=== PATIENT | female | born 2000 | race Caucasian/White ===

== ENCOUNTER 2023-12-18 08:40 | Inpatient (IN) | payer OTHER, SELFPAY ==
[2023-12-16 19:40] VITALS: BP 124/88
[2023-12-16 20:17] VITALS: BMI 18.6
[2023-12-16 21:10] LABS: % Basophils 0.6 % (0-2); % Eosinophils 0.2 % (0-6); % Immature Granulocytes 0.2 % (0-0.5); % Lymphocytes 22.2 % (20.5-51.1); % Neutrophils 71.8 % (42.2-75.2); Absolute Basophils 0.1 10^3/uL (0-0.2); Absolute Lymphocytes 1.9 10^3/uL (1.2-3.4); Absolute Monocytes 0.4 10^3/uL (0.1-0.6); Absolute Neutrophils 6.1 10^3/uL (1.4-6.5); Hematocrit 34.4 % (37.0-47.0); Hemoglobin 11.7 g/dL (12.0-16.0); Mean Corpuscular Hgb 27.9 pg (27.0-31.0); Mean Corpuscular Volume 81.9 fL (81.0-99.0); Mean Platelet Volume 9.5 fL (7.4-10.4); Nucleated Red Blood Cells % 0 %; Platelet Count 193 10^3/uL (130-400); Red Cell Dist. Width 13.6 % (11.5-14.5); White Blood Cell Count 8.5 10^3/uL (4.8-10.8)
[2023-12-16 21:27] LABS: HCG, Serum Qualitative Screen Negative
[2023-12-16 21:31] LABS: ALT (SGPT) 17 U/L (0-35); AST (SGOT) 26 U/L (14-36); Albumin 4.5 g/dl (3.5-5.0); Alkaline Phosphatase 57 U/L (38-126); Blood Urea Nitrogen 6 mg/dl (7-17); Calcium 9.8 mg/dl (8.4-10.2); Carbon Dioxide 24 mmol/L (22-30); Chloride 104 mmol/L (98-107); Estimated Creatinine Clearance > 125 ml/min; Glucose 84 mg/dl (70-99); Magnesium 1.9 mg/dl (1.6-2.3); Phosphorus 3.9 mg/dl (2.5-4.5); Potassium 4.3 mmol/L (3.5-5.1); Sodium 133 mmol/L (135-145); Total Bilirubin 0.4 mg/dl (0.2-1.3); Total Protein 7.1 g/dl (6.3-8.2); eGFR > 60.00
[2023-12-16 22:06] LABS: Urine Albumin Negative (Neg - Trace); Urine Bilirubin Negative (Negative); Urine Character Clear (Clear); Urine Color Straw; Urine Glucose Negative (Negative); Urine Ketone Negative (Negative); Urine Leukocyte Trace (Negative); Urine Nitrite Negative (Negative); Urine Occult Blood Negative (Negative); Urine Specific Gravity 1.005 (<1.030); Urine Urobilinogen Negative (Neg - 1+)
[2023-12-16 22:14] LABS: Urine Red Blood Cell 0-2 /HPF (0-2)
[2023-12-16 22:15] LABS: Urine Bacteria Few (Negative)
--- NOTE | 2023-12-16 22:23 | ED.GENMED ---
History of Present Illness
General
Chief Complaint: Weight Changes
Source: patient and family (Mother)
Exam Limitations: none
Time Seen by Provider: 12/16/23 20:35
Nursing documentation reviewed up to this point in time: agreed with
Travel History
Have you had any contact with someone who has COVID-19?: No
Do you have any symptoms of coronavirus? Fever > 100 degrees, chills, cough, shortness of breath, sore throat, loss of taste or smell, muscle aches, or headache?: No
History of Present Illness
History of Present Illness:
23-year-old female with a past medical history of anxiety and depression who presents to the emergency room with her mother for evaluation of weight loss. Patient reports that she has had chronic issues with anorexia/poor appetite over the past 3
years. Symptoms have been acutely worse over the past few months particularly since with July. Over that period of time she has lost 20 to 30 pounds unintentionally. She says that she has chronic nausea and that any significant food intake
beyond small bites causes her to vomit and gag. She denies any abdominal pain. She has not had any blood in her vomit. She saw gastroenterology for evaluation (Dr. Duke) and had endoscopy which was nondiagnostic. There was a question of whether
her symptoms could be related to chronic marijuana use and so she discontinued marijuana in August but symptoms have not improved and in fact have worsened. She has been seen by both a psychiatrist and a psychologist and has been admitted at
inpatient clinics for eating disorder without success in weight gain. She says that her psychiatrist referred her to the emergency room for assessment with concern for starvation and consideration of feeding tube.
Past History
Past History
ED Past Medical History: Asthma and Psychiatric
ED Past Surgical History: None
Social History
Tobacco: Non-smoker
Alcohol: None
Drug: None
Review of Systems
Review of Systems
All Other Systems: ROS reviewed and negative except as documented in HPI and ROS
Constitutional: Reports fatigue; Denies fever
Respiratory: Denies cough or trouble breathing
Cardiac: Denies chest pain or palpitations
ABD/GI: Reports nausea and vomiting; Denies abdominal pain or diarrhea
: Denies flank pain
Musculoskeletal: Denies neck pain or back pain
Neurological: Denies headache, weakness or numbness
Phy Exam
Physical Exam
Physical Exam:
General: Awake, alert, oriented x3; cachectic (BMI 18) but no acute distress
Head: Normocephalic, atraumatic
Eyes: Conjunctiva normal
Throat: Airway intact, handling secretions
Neck: Trachea midline, supple without meningismus
Lungs: Clear to auscultation bilaterally, no wheezing, rales, rhonchi
Heart: Tachycardia with regular rhythm, no murmurs, gallops, or rubs
Abd: Soft, non distended, nontender
Neuro: No gross deficits
Skin: no rash
Extremities: No edema in extremities, warm well-perfused
Scores
Heart Failure Risk
Heart Failure Risk Score: Not Applicable
Heart Score for Chest Pain Patients
STEMI patient?: Not applicable
Withdrawal Assessment of Alcohol
Withdrawal Assessment Completed?: Not applicable
Course
Orders/Labs/Results
Orders:
Orders
12/16/23 20:47
Electrocardiogram (*1) Urgent
Reason for Study: QTc Monitoring
EKG- Treatment ONCE
12/16/23 20:48
Test Result ONCE
12/16/23 21:02
Complete Blood Count/With Diff Urgent
Comprehensive Metabolic Panel Urgent
HCG, Serum Qualitative Screen Urgent
Magnesium Urgent
Phos [Phosphorus] Urgent
12/16/23 21:59
Urinalysis Reflex To Culture Urgent
Date Specimen was Collected: 12/16/23
Time Specimen was Collected: 21:58
Urine Microscopic Reflex Cult Urgent
12/16/23 22:21
GASTROINTESTINAL CONSULT Urgent
Consulting Provider: Jett Wilkins
Was physician already notified: Yes
PSYCHIATRY CONSULT Urgent
Consulting Provider: Dori Marie
Was physician already notified: Yes
0.9% Sodium Chloride 1000 ml [Nss] 1,000 ml IV BOLUS
12/16/23 22:25
CT Abd/pelvis Angio W/wo Iv Urgent
Comment:
Reason For Exam: chronic nausea, weight loss-eval for SMA syndrome
Abnormal Lab Results
12/16/23 12/16/23
21:02 21:59
Hgb 11.7 L g/dL
(12.0-16.0)
Hct 34.4 L %
(37.0-47.0)
Sodium 133 L mmol/L
(135-145)
BUN 6 L mg/dl
(7-17)
Leukocyte Esterase Rfl Trace A
(Negative)
Urine Bacteria (Reflex) Few A
(Negative)
12/16/23 21:02
12/16/23 21:02
Vital Signs
Initial and Last Documented VS:
Initial Vital Signs
Temp Pulse Resp BP Pulse Ox
37.2 C 117 16 124/88 99
12/16/23 19:40 12/16/23 19:40 12/16/23 19:40 12/16/23 19:40 12/16/23 19:40
Last Documented Vital Signs
Temp Pulse Resp BP Pulse Ox
37.2 C 117 16 124/88 99
12/16/23 19:40 12/16/23 19:40 12/16/23 19:40 12/16/23 19:40 12/16/23 19:40
MDM/Problems Addressed
Differential Diagnosis Includes:
Neuropsychiatric issue leading to poor appetite and chronic nausea, chronic gastritis/esophagitis, cannabinoid hyperemesis, SMA syndrome
MDM/Problems Addressed:
23-year-old female presents for evaluation of poor appetite/anorexia and weight loss. Clinical history as described in HPI. She says she was referred by psychiatrist with concern for starvation and consideration of feeding tube. She is
tachycardic but otherwise normal vitals. Physical exam as above. BMI today is 18. Plan to place an IV check labs including CBC and a CMP, magnesium, phosphorus level. Check an hCG. Check urinalysis. Will check an EKG. Reassess after the above.
Labs reviewed and fortunately no clinically significant abnormalities�CBC and CMP are essentially unremarkable, phosphorus and mag levels normal, albumin normal. Urinalysis no ketones. Given her report of significant unintentional weight loss and
low BMI today we will plan to admit for specialist consultation, observation and calorie count. Discussed with GI they will evaluate while admitted�recommended CTA to rule out SMA syndrome. Discussed with psychiatry for evaluation as well. Case
discussed with hospitalist for admission.
*Pulse Oximetry
Patient hypoxic: no
*EKG
Interpreted by ED Provider?: Yes
Heart Rate: 61
Rate: normal
Rhythm: sinus
[place]: normal axis
Interval: normal interval and normal QT interval
QRS Pattern: normal QRS
Ischemia: no ischemia
*Critical Care Note
Total Time (30-74mins, 75-104mins- exclusive of procedures): Not Applicable
Data Reviewed
Review of Other/Old Records Reveals: Labs, Records and Testing (Endoscopy report from August)
Source: patient and family (Mother)
Patient Management
Discussion with other providers: Hospitalist (Discussed with hospitalist) and Diagnostic Technician (Discussed with psychiatrist, discussed with hop farm worker)
Escalation/DeEscalation of care consider admission/obs:
Admission indicated
ED Attending Note
-
Portions of this chart may have been created with voice recognition software.� Occasional wrong word or��sound alike� substitutions may have occurred due to the inherent limitations of voice recognition software.
Discharge Plan
Departure
Patient Disposition: Admit
Date of Disposition: 12/16/23
Time of Disposition: 22:27
Admit to doctor: Jacobsen
Presentation/result/management discussed w/ accepting MD/DO: Hospitalist
Discharge Problem:
Weight loss, Chronic nausea
Prescriptions:
No Action
fexofenadine-pseudoephedrine [Lakisha-D 24 Hour] 1 EACH tablet extended release 24 hr
1 ea PO DAILY PRN (Reason: allergies )
Epidiolex 1 UNIT solution
1 unit PO .DAILYPRN PRN (Reason: anxiety)
lamotrigine [Lamictal] 200 mg Tablet
200 mg PO DAILY
ondansetron HCl [Zofran] 4 mg Tablet
4 mg PO Q6H PRN (Reason: nausea )
clonazepam [Klonopin] 1 mg Tablet
1 mg PO DAILY
escitalopram oxalate [Lexapro] 10 mg Tablet
30 mg PO DAILY
Referrals:
Rosa Mckenna NP [Family Provider] -
Interventions
Interventions:
*General Assessment Last Done: 12/16/23 19:40
Discharge Date and Time
Print Language: SINHALA
[2023-12-16] MEDS: NSS 1000 IV (22:35)
--- NOTE | 2023-12-16 23:11 | HPS.HSE ---
Family Physician
-
Family Physician: Rosa Mckenna
Chief Complaint
-
anorexia
History of Present Illness
23-year-old female past medical history of anorexia, anxiety/depression/bipolar, asthma, hypermobility syndrome presenting for evaluation of weight loss. Patient has had chronic issues with anorexia/poor appetite over the past 3 years. Around 3
years ago she started having issues with eating food related to the stress of college. She gets severely nauseous after eating resulting in vomiting unintentionally.
Symptoms have been acutely worse over the past few months especially since July. Over the time she was lost 20 to 30 pounds unintentionally. Patient has chronic nausea and any significant food intake beyond small bites caused her to vomit and
gag. She does periodically get abdominal cramping. Denies any blood in the vomit. Her stools are regular. She saw gastroenterology Dr. Duke and had endoscopy which was nondiagnostic. There was question as to whether her symptoms could be related
to chronic marijuana use so she stopped taking marijuana in August but symptoms have not improved. She takes Zofran but typically vomits the Zofran as well. She has been seen by psychiatrist and psychologist has been admitted at inpatient clinic
for eating disorder in August with no success in weight gain. Her psychiatrist referred her to the emergency room due to starvation and consideration of feeding tube.
Patient states that she is under a lot of anxiety due to not eating and has chronic depression and bipolar in her youth. Denies any changes to her psychiatric medications since 2021. Denies any suicidal thoughts.
Patient denies alcohol or smoking.
Medical History
Past Medical History
Past Medical History: Reports Other (anorexia, anxiety/depression/bipolar, asthma, hypermobility syndrome )
Past Surgical History: Reports None
Social History
Tobacco: Non-smoker
Alcohol: None
Family History
Family History: Not pertinent
Allergies / Home Medications
Allergies reflects when Allergies were last updated in [email or web address].
Home Medications with original date entered in [email or web address]
Allergy/Medication List:
Allergies
Allergy/AdvReac Type Severity Reaction Status Date / Time
No Known Allergies Allergy Verified 04/11/20 02:14
Home Medications
fexofenadine-pseudoephedrine ER 180 mg-240 mg tablet,ext.release 24 hr (Lakisha-D 24 Hour) 1 ea PO DAILY PRN allergies 01/08/17
clonazepam 1 mg tablet 1 mg PO BID PRN anxiety 12/16/23
clonazepam 1 mg tablet (Klonopin) 1 mg PO DAILY 12/16/23
escitalopram oxalate 10 mg tablet (Lexapro) 10 mg PO DAILY 12/16/23
escitalopram oxalate 20 mg tablet 20 mg PO DAILY 12/16/23
lamotrigine 200 mg tablet (Lamictal) 200 mg PO DAILY 12/16/23
ondansetron HCl 4 mg tablet 4 mg PO Q6H PRN nausea 12/16/23
Review of Systems
-
History Source: Patient
A 12 point ROS was completed and negative except as noted: Yes
Constitutional: Reports No Symptoms
EENT: Reports No Symptoms
Respiratory: Reports No Symptoms
Cardiac: Reports No Symptoms
Abdomen/GI: Reports No Symptoms
: Reports No Symptoms
Musculoskeletal: Reports No Symptoms
Skin: Reports No Symptoms
Neurological: Reports No Symptoms
Endocrine: Reports No Symptoms
Hematologic/Lymphatic: Reports No Symptoms
Psych: Reports No Symptoms
Physical Exam
Vital Signs
Vital Signs
Temp Pulse Resp BP Pulse Ox
98.9 F 117 16 124/88 99
12/16/23 19:40 12/16/23 19:40 12/16/23 19:40 12/16/23 19:40 12/16/23 19:40
Physical Exam
General: Well Developed, Well Nourished and No Apparent Distress
HEENT: NormoCephalic, Moist mucous membranes and Atraumatic
Respiratory: Clear
Cardiac: S1/S2 and Regular Rhythm; No Murmur or Rub
GI: Soft, Non Tender, Non Distended and Normal Bowel Sounds; No Organomegaly
Rectal: Deferred by Provider
Musculoskeletal: No Clubbing, No Cyanosis and No Edema
Skin: No Rash
Neuro: Nonfocal/grossly intact
Laboratory Results
-
12/16/23 21:02
12/16/23 21:
Laboratory Results
Total Bilirubin 0.4 mg/dl (0.2-1.3) 12/16/23 21:
AST 26 U/L (14-36) 12/16/23 21:
ALT 17 U/L (0-35) 12/16/23 21:
Alkaline Phosphatase 57 U/L (38-126) 12/16/23 21:
Data Reviewed
-
Lab Data: Labs Reviewed by me
Old Records: Reviewed
Impression/Plan
-
IMPRESSION:
PLAN:
# Unintentional nausea/vomiting after food consumption, history suggestive of bulimia
-BMI of 18.6 which as per EMR which is not underweight suggesting bulimia
-Electrolytes normal
-Psychiatry consulted
-CTA abdomen pelvis to evaluate for SMA syndrome
-GI consulted for consideration of feeding tube although unclear if she would be candidate
History of anxiety/depression/bipolar
-Continue diazepam, Lexapro, Lamictal
Asthma
History of hypermobility syndrome
Prior marijuana use
Full code
DVT prophylaxis�heparin
Regular diet
[2023-12-16 23:34] VITALS: BP 104/73
[2023-12-17 00:17] VITALS: BP 112/72
[2023-12-17 00:18] VITALS: BMI 18.7
[2023-12-17] MEDS: KLONOPIN 1 MG PO ×3 (00:39→22:18)
--- NOTE | 2023-12-17 01:04 | PTCARENOTE ---
Pt admitted to rm 330 and walked in from stretcher to bed w/ steady gait. Pt aaox3, VSS, and no c/o pain. Pt's home meds walked down to pharmacy and held there. Pt oriented to room, call rivera within reach, and plan of care ongoing.
[2023-12-17 06:00] VITALS: BMI 18.7
[2023-12-17 06:21] LABS: % Basophils 0.5 % (0-2); % Eosinophils 2.1 % (0-6); % Immature Granulocytes 0.2 % (0-0.5); % Monocytes 6.8 % (1.7-9.3); % Neutrophils 52.4 % (42.2-75.2); Absolute Eosinophils 0.1 10^3/uL (0-0.7); Absolute Lymphocytes 2.4 10^3/uL (1.2-3.4); Absolute Monocytes 0.4 10^3/uL (0.1-0.6); Absolute Neutrophils 3.3 10^3/uL (1.4-6.5); Hematocrit 32.7 % (37.0-47.0); Hemoglobin 10.9 g/dL (12.0-16.0); Mean Corp Hgb Conc. 33.3 g/dL (33.0-37.0); Mean Corpuscular Hgb 27.6 pg (27.0-31.0); Mean Corpuscular Volume 82.8 fL (81.0-99.0); Mean Platelet Volume 9.9 fL (7.4-10.4); Nucleated Red Blood Cells % 0 %; Platelet Count 172 10^3/uL (130-400); Red Blood Cell Count 3.95 10^6/uL (4.20-5.40); Red Cell Dist. Width 13.7 % (11.5-14.5); White Blood Cell Count 6.2 10^3/uL (4.8-10.8)
[2023-12-17 06:57] LABS: ALT (SGPT) 16 U/L (0-35); AST (SGOT) 23 U/L (14-36); Albumin 3.6 g/dl (3.5-5.0); Alkaline Phosphatase 51 U/L (38-126); Blood Urea Nitrogen 5 mg/dl (7-17); Calcium 9.1 mg/dl (8.4-10.2); Carbon Dioxide 23 mmol/L (22-30); Chloride 109 mmol/L (98-107); Estimated Creatinine Clearance > 125 ml/min; Glucose 82 mg/dl (70-99); Potassium 3.8 mmol/L (3.5-5.1); Sodium 137 mmol/L (135-145); Total Bilirubin 0.6 mg/dl (0.2-1.3); eGFR > 60.00
[2023-12-17 07:00] VITALS: BP 102/62
[2023-12-17] MEDS: LEXAPRO 10 MG PO (08:35)
[2023-12-17] MEDS: LAMICTAL 200 MG PO (08:35)
[2023-12-17] MEDS: LEXAPRO 20 MG PO (08:35)
[2023-12-17] MEDS: HEPARIN 5000 UNITS SC ×2 (08:36→20:16)
--- NOTE | 2023-12-17 08:53 | CON.GI ---
Addendum entered and electronically signed by Shanelle Barrientos DO 12/17/23 11:46:
I saw and examined the patient.
The PAINTER RAILROAD CAR or PA's note was reviewed and I agree with the note.
Comment: Difficult to assess how much of her eating disorder is at play her vs. medication side-effects vs. structural/mechanical issue vs. constipation exacerbating her symptoms-- supect multifactorial. Her CT scan does not demonstrate SMA
syndrome, however, it does show a paucity of intra-abdominal fat and acute angulation between the aorta and SMA, causing a mass effect on the left renal vein (c/w nutcracker syndrome). There is no abnormal dilation of the stomach, despite flattening
at D3, which is what would be seen in the setting of SMA syndrome. I am not sure how much of her symptoms are truly due to nutcracker syndrome. I would like to further evaluate with a barium study-- UGI w/ small bowel evaluation to better discern if
there truly is some abnormal dilation of the stomach in conjunction with loss of abdominal fat pad and flattening at D3.
Additionally, I personally reviewed her CT scan and there is a large stool burden in her colon. Her bowel pattern is c/w overflow diarrhea. Her constipation could certainly be contributing to her symptoms. Recommend aggressive bowel regimen.
Unfortunately, [employer] has a black box warning of SI-- would not recommend for this patient, though, it would be an ideal agent based on its MOA.
Placement of a feeding tube at this time would be premature at this time.
Addendum entered and electronically signed by TALIA Driver 12/17/23 10:02:
Follow up with Dr. Duke 02/03/24 at 0900
Original Note:
Consultation
-
Date/Time Consultation Requested: 12/16/232220
Date/Time Consultation Performed: 12/17/23 0854
Requesting Provider: Dr. Mckeon
Performing Provider: Dr. Barrientos/TALIA Sanon
Reason for Consultation: nausea, anorexia
Medical History
Chief Complaint / HPI
Chief Complaint: nausea, anorexia
History of Present Illness:
23-year-old female with history of restrictive eating disorder, bipolar, asthma, anxiety, hypermobility disorder presents to the emergency room with approximately 10 pound weight loss since leaving treatment center for anorexia. The patient states
that she was in [facility] as an inpatient for almost 2 months after discharge she has been trying to maintain her weight however she has lost approximately 10 pounds. She is eating less than 1000 arianne a day. She states that she has
persistent nausea with consumption of any consistency of food. She has had episodes of vomiting that is not self-induced. She denies any abdominal pain. She does utilize Zofran on a daily basis. She states that she does not 'want to be like
this' and she is trying to work through her issues with psychiatry. The patient states that the symptoms started approximately 3 years ago. Events surrounding this time were initiation of college and a relationship. The patient had used marijuana
in the past but stopped in August. This had no change in her symptoms. She had an EGD performed in August 2023 that showed antral erythema and bilious gastric fluid. The patient was placed on omeprazole which did help her reflux/GERD symptoms.
She was on this for approximately 1 month only. It did not have any change on her other symptoms. The patient also has a history of constipation where she alternates between hard pebble-like stools and no bowel movements then diarrhea. She does
not take any medications to facilitate bowel movement. She denies any fevers, chills, melena, hematochezia, dysphagia or odynophagia. She does state that she has some night sweats and palpitations. She states that she has not brought this up with
her PCP in the past. Patient's weight is currently 125 pounds. She was 130 in November and 125 pounds in August. The patient does not smoke. She does not drink any alcohol. She does not exercise. Patient's current medications at home include
Klonopin, Lexapro, Lamictal and Zofran. The patient does not take any [id number] medications or supplements.
Past Medical History
Past Medical History: Asthma, Psychiatric (Anxiety/depression/restrictive eating disorder) and Other (Hypermobility syndrome)
Past Surgical History: Other ([place] teeth)
Social History
Tobacco: Non-Smoker
Alcohol: None
Drug: Other (Former marijuana user, stopped August 2023)
Personal: Single
Living: With Family
Employment: Other (Student)
Family History
Family History: Other (No family history of gastrointestinal malignancy, IBD)
Allergies / Home Medications
Allergy/AdvReac Type Severity Reaction Status Date / Time
No Known Allergies Allergy Verified 04/11/20 02:14
�Medication �Instructions �Recorded
fexofenadine-pseudoephedrine ER 1 ea PO DAILY PRN allergies 01/08/17
180 mg-240 mg tablet,ext.release
24 hr (Lakisha-D 24 Hour)
clonazepam 1 mg tablet 1 mg PO BID PRN anxiety 12/16/23
clonazepam 1 mg tablet (Klonopin) 1 mg PO DAILY 12/16/23
escitalopram oxalate 10 mg tablet 10 mg PO DAILY 12/16/23
(Lexapro)
escitalopram oxalate 20 mg tablet 20 mg PO DAILY 12/16/23
lamotrigine 200 mg tablet 200 mg PO DAILY 12/16/23
(Lamictal)
ondansetron HCl 4 mg tablet 4 mg PO Q6H PRN nausea 12/16/23
Review of Systems
-
All other systems: A 12 pt ROS was Negative except as stated above in HPI
Vital Signs
Temp Pulse Resp BP Pulse Ox
98.4 F 63 18 112/72 100
12/17/23 00:17 12/17/23 00:17 12/17/23 00:17 12/17/23 00:17 12/17/23 00:17
Physical Exam
Exam
General: No Apparent Distress
HEENT: Anicteric
Respiratory: Clear
Cardiac: Regular Rhythm
GI: Soft, Non Tender, Non Distended and Normal Bowel Sounds
Musculoskeletal: No Edema
Skin: Warm and Dry
Neuro: AO x 3
Psych: Calm and Other (Tearful at times during discussion)
Results
WBC 6.2 10^3/uL (4.8-10.8) 12/17/23 05:40
Hgb 10.9 g/dL (12.0-16.0) L 05 05:40
Hct 32.7 % (37.0-47.0) L 12/17/23 05:40
MCV 82.8 fL (81.0-99.0) 12/17/23 05:40
Plt Count 172 10^3/uL (130-400) 05 05:40
Absolute Neuts (auto) 3.3 10^3/uL (1.4-6.5) 12/17/23 05:40
Sodium 137 mmol/L (135-145) 12/17/23 05:40
Potassium 3.8 mmol/L (3.5-5.1) 12/17/23 05:40
Chloride 109 mmol/L (98-107) H 12/17/23 05:40
Carbon Dioxide 23 mmol/L (22-30) 12/17/23 05:40
BUN 5 mg/dl (7-17) L 12/17/23 05:40
Creatinine 0.6 mg/dL (0.6-1.0) 12/17/23 05:40
Calcium 9.1 mg/dl (8.4-10.2) 12/17/23 05:40
Total Bilirubin 0.6 mg/dl (0.2-1.3) 12/17/23 05:40
AST 23 U/L (14-36) 12/17/23 05:40
ALT 16 U/L (0-35) 12/17/23 05:40
Alkaline Phosphatase 51 U/L (38-126) 12/17/23 05:40
Diagnostic Image Results:
Prior GI Procedures:
EGD: 09/03/2023 ()
- Normal esophagus. Biopsied.
- Erythematous mucosa in the antrum. Biopsied.
- Bilious gastric fluid.
- Normal examined duodenum. Biopsied.
Colonoscopy: Never had
Assessment / Plan
-
23-year-old female with history of restrictive eating disorder, bipolar, asthma, anxiety, hypermobility disorder presents to the emergency room with approximately 10 pound weight loss since leaving treatment center for anorexia. The patient states
that she was in [facility] as an inpatient for almost 2 months after discharge she has been trying to maintain her weight however she has lost approximately 10 pounds. We are asked to evaluate for the same with patient's inability to
maintain body weight and persistent nausea. WBC 6.2, hemoglobin 10.9, hematocrit 32.7, MCV 82.8, MCH 27.6, platelets 172, sodium 137 (up from 133), potassium 3.8, chloride 109, CO2 23, BUN 5, creatinine 0.6, glucose 82, total bilirubin 0.6, AST 23,
ALT 16, alk phos 51, albumin 3.6, magnesium 1.9, phosphorus 3.9. hCG negative. UA with trace leukocytes and few bacteria. CTA abdomen and pelvis pending.
Impression:
Chronic nausea
Chronic constipation
History of restrictive eating disorder
History anxiety/depression
GERD
Patient with subjective palpitations and night sweats
Plan:
-Await CTA abdomen pelvis
-Check TSH/free T4 and a.m. cortisol
-Psychiatry consult pending
-Check daily weights/calorie counts
-Discussed with patient possible options for constipation. Will await CTA results before initiation.
-Zofran as needed nausea. QTc within normal limits.
-Add pantoprazole 40 mg daily, this helped her reflux symptoms in the past
-Will arrange follow up with Dr. Duke as outpatient.
-Further recommendations to be forthcoming.
Data Reviewed
-
Old Records: Reviewed
-
-
Thank you for consultation and allowing me to participate in the patient's care. Please call the extruder operator horizontal GI physician during the after hours with any questions or concerns.
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
[2023-12-17 11:43] LABS: TSH Reflex To Free T4 1.43 uIU/ml (0.47-4.68)
[2023-12-17] MEDS: SENOKOT-S 1 TABLET PO ×2 (13:05→20:16)
[2023-12-17] MEDS: CITROMA 300 ML PO (13:05)
[2023-12-17 13:18] VITALS: BMI 18.7
--- NOTE | 2023-12-17 14:52 | CM ---
Addendum entered by Xenia Rodriguez 12/17/23 15:43:
DME - nebulizer, glucose monitor, BP cuff
SNF/HH - denies hx
Original Note:
Met with pt at bedside
Admitted for bulemia. Past hx of eating disorder, anxiety/depression/bipolar, asthma, hypermobility syndrome presenting for evaluation of weight loss
Pt lives with 2 room mates in an apartment at listed address
Describes self as independent
Has ride at d/c
PCP - Dr Rosa Mckenna
Pharm - [facility]
CM will be available for d/c needs
Plan - anticipate home no needs
[2023-12-17 15:00] VITALS: BP 103/66
--- NOTE | 2023-12-17 17:17 | W.PN.HOSP.TC ---
Today's Communication/Plan
-
Advance diet
Upper GI series.
Monitor electrolytes.
Assessment / Plan
Assessment / Plan
Impression/plan:
Presentation with persistent nausea and vomiting with food consumption leading to low oral intake.
Cachexia with BMI of 18.
Extensive history of eating disorder including anorexia/bulimia.
PTSD.
Abdominal examination benign.
No electrolytes abnormalities.
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
Agree with gastroenterology to pursue upper GI series for complete workup.
Constipation management.
Psychiatry input appreciated with recommendation to reduce dose of Lexapro
Consider benzodiazepines prior to oral intake.
Currently no indication for gastric tube placement as patient has intact gastrointestinal tract with no evidence of electrolyte abnormalities
Asthma with no exacerbation.
Prior marijuana use, currently denies any illicit substances.
Anticipated Discharge: 24 - 48 hours
Subjective/Interval History
-
Date of Service: December 17, 2023
Objective Data
-
Labs:
Laboratory Results
12/17/23
05:40
WBC 6.2
Hgb 10.9 L
Hct 32.7 L
Plt Count 172
Sodium 137
Potassium 3.8
Chloride 109 H
Carbon Dioxide 23
BUN 5 L
Creatinine 0.6
Glucose 82
Calcium 9.1
Total Bilirubin 0.6
AST 23
ALT 16
Alkaline Phosphatase 51
Vital Signs:
Vital Signs
Temp Pulse Resp BP Pulse Ox
98.3 F 67 16 103/66 99
12/17/23 15:00 12/17/23 15:00 12/17/23 15:00 12/17/23 15:00 12/17/23 15:00
I&O
12/16/23 12/17/23 12/18/23
06:59 06:59 06:59
Intake Total 120 / 120
Balance 120 / 120
Physical Exam
-
General: Well Developed and No Apparent Distress
HEENT: Normocephalic, Atraumatic and Moist Mucous Membranes
Respiratory: Clear to Auscultation
Cardiac: Regular Rhythm and S1/S2; Negative Murmur, Rub or Gallop
GI: Soft, Nontender, Nondistended and Normal Bowel Sounds; Negative Organomegaly
Rectal: Deferred by Provider
Musculoskeletal: No Clubbing, No Cyanosis and No Edema
Skin: Negative Rash
Neuro: Awake, Alert, Oriented, AO x 3 and Nonfocal/Grossly Intact
[2023-12-17 23:39] VITALS: BP 99/58
[2023-12-18 06:00] VITALS: BMI 18.0
[2023-12-18 07:00] VITALS: BP 97/56
[2023-12-18 07:28] LABS: Cortisol, Random 13.1 ug/dl
--- NOTE | 2023-12-18 10:16 | W.PN.GI.CBS2 ---
Today's Communication / Plan
-
Nutrition consult. UGI series. Discuss possibly transferring to [facility], otherwise, okay for discharge from a GI perspective.
Assessment / Plan
-
23-year-old female with history of restrictive eating disorder, bipolar, asthma, anxiety, hypermobility disorder presents to the emergency room with approximately 10 pound weight loss since leaving treatment center for anorexia, advised to come to
the hospital for assessment of her nutritional status and need for feeding tube.
It is difficult to assess how much of her eating disorder is at play vs. medication side-effects vs. structural/mechanical issue vs. constipation exacerbating her symptoms-- suspect it is multifactorial. Her CT scan does not demonstrate SMA
syndrome, however, it does show a paucity of intra-abdominal fat and acute angulation between the aorta and SMA, causing a mass effect on the left renal vein (c/w nutcracker syndrome). There is no abnormal dilation of the stomach, despite flattening
at D3, which is what would be seen in the setting of SMA syndrome. I am not sure how much of her symptoms are truly due to nutcracker syndrome--her complaints are NOT consistent with this diagnosis, so I feel this is not a surprising finding given
the clinical picture, but somewhat incidental. I would like to further evaluate with a barium study-- UGI w/ small bowel evaluation to better discern if there truly is some abnormal dilation of the stomach in conjunction with loss of abdominal fat
pad and flattening at D3.
Additionally, I personally reviewed her CT scan and there is a large stool burden in her colon. I placed her on a standing bowel regimen with reports of about 6 liquid BMs since yesterday, suspect some overflow diarrhea, she denies any improvement
in her chronic nausea and early satiety.
Unfortunately, Motegrity has a black box warning of SI-- would not recommend for this patient, though, it would be an ideal agent based on its MOA. I do NOT recommend placing a feeding tube in this patient.
Plan:
-UGI series pending, if unable to complete today, this can be performed as an outpatient
-AM cortisol level, TSH WNL
-appreciate psych consult-- lexapro dose adjusted
-Check daily weights/calorie counts
-consult nutrition, patient would like to speak to them before discharge
-Continue with pantoprazole 40mg daily
-Transfer to [facility]? Likely does not meet inpatient criteria... will ask psychiatry if they feel this is appropriate
-continue bowel regimen upon discharge
-Zofran as needed nausea. QTc within normal limits.
-Outpatient f/u scheduled with Dr. Duke on 02/02 @9:00 AM
Subjective
Subjective
Date of Service: December 18, 2023
Patient seen in follow-up today. Overall she is stable, no overnight events. She is tearful today, spoke to her psychiatrist on the phone last night who felt she was appropriate for inpatient care at [facility], which apparently accepts up to 26 y.o.
patients. I am not sure if she meets criteria or not. We are keeping calorie counts on her now. We discussed the findings of her CT Scan-- evidence of nutcracker syndrome on imaging but lacks clinical signs of this-- no gastric distension evidence
to suggest SMA syndrome. UGI series pending.
Objective
Data Reviewed
Laboratory Data:
Laboratory Results
12/17/23 05:40
12/17/23 05:40
Laboratory Results
Phosphorus 3.9 mg/dl (2.5-4.5) 12/16/23 21:02
Magnesium 1.9 mg/dl (1.6-2.3) 12/16/23 21:02
Total Bilirubin 0.6 mg/dl (0.2-1.3) 12/17/23 05:40
AST 23 U/L (14-36) 12/17/23 05:40
ALT 16 U/L (0-35) 12/17/23 05:40
Alkaline Phosphatase 51 U/L (38-126) 12/17/23 05:40
Vital Signs and I&O:
Vital Signs
Temp Pulse Resp BP Pulse Ox
98.3 F 77 16 97/56 99
12/18/23 07:00 12/18/23 07:00 12/18/23 07:00 12/18/23 07:00 12/18/23 07:00
I&O
12/17/23 12/18/23 12/19/23
06:59 06:59 06:59
Intake Total 120 / 120 600 / 600
Balance 120 / 120 600 / 600
Physical Exam
Physical Exam
GENERAL: In no distress but tearful, slightly anxious
HEENT: no scleral icterus, mucous membranes moist, OP clear
RESP: Nonlabored respirations, clear to ausculation, b/l
CV: RRR, S1/S2
ABDOMEN: +BS; soft, non-tender and non-distended; no rebound or guarding
EXT: No LE edema, b/l
SKIN: Dry, warm
NEURO: AAOx3
--- NOTE | 2023-12-18 12:12 | W.PN.UPDATE ---
Update Note
Progress Note Update
patient seen chart reviewed. spoke with dr martinez and we met with sobia together after i saw her. the patient's other was present. the patient was initially very discouraged feeling that staff was not taking her c.o seriously and that everyone was
assuming she was just 'anorexic' reassured patient that her complaint was being taken very seriously as evidenced by studies done this am. 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
there is more going on. she had thought she might be better rx at [facility] which we explored. in the meantime i told her i would talk to dr martinez and to dietary. we discussed importance of small frequent meals which she thought meant q 5 hr
suggested q 2 hr would be better. i spoke with dr martinez after and we met w her together. 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 surgeon will see her later today to discuss rx. did not change medications at this point.
left a message for wilman and dr ortega who is o/p psychiatrist.
--- NOTE | 2023-12-18 12:24 | CON.GS ---
Addendum entered and electronically signed by Ruddy Hamlin MD 12/18/23 14:50:
I saw and examined the patient independently.
The Excellence Coach's note was reviewed and I agree with the note, assessment and plan except where noted below.
Comment: This is a 23-year-old female with a remote history of anorexia, bipolar disorder who presents with sustained weight loss, nausea and nonbloody nonbilious emesis since July. She was admitted to the [facility] with some weight gain
there however given her prolonged course of poor p.o. intake she was directed to come to our emergency department for workup and management. Here CT scan was performed which demonstrated no significant abnormality though the SMA angle was roughly
28 degrees (normal 40-65) and the SMA distance at 3.5 mm (normal 10 to 30 mm). She then underwent an upper GI series which demonstrated a fairly abrupt cut off at the third portion of the duodenum with some upstream dilation concerning for SMA
syndrome. On the radiographic series however the proximal duodenum and stomach is not particularly dilated. Her exam is unremarkable.
Will plan for an endoscopic nasojejunal tube (Dobbhoff) in the OR Thursday. With plans to start trickle tube feeds that night.
The patient is aware that these tubes can be finicky and flipped back or malfunction however this would be the best/least invasive first step. If this fails we will plan to switch to a feeding jejunostomy tube. She will be able to continue taking
p.o. intake with this tube in place and as her p.o. intake increases we can decrease the tube feed rate.
Patient agreeable to plan described above.
Okay to feed as tolerated over the weekend. She may note improved p.o. tolerance with lying prone or in left lateral decubitus position.
N.p.o. Thursday at midnight.
Continue trending electrolytes, please obtain a prealbumin
She will need a nutrition consult for tube feeds and will need to set up tube feeds for home.
Risks/Benefits/Alternatives, expected postoperative course and possible complications (bleeding, infection, injury to surrounding structures, acute/chronic pain) discussed at length. Patient wishes to proceed with surgery. All questions answered.
Consent yet to be obtained.
I spent roughly 75 minutes in total for the care of this patient today including direct patient care and counseling, reviewing labs, imaging, coordination of care, as well as documentation.
Original Note:
Medical History
-
Chief Complaint: nausea
History of Present Illness:
23 yo female with h/o ARFID, asthma, bipolar, hypermobility and recent weight loss in July of about 30 lbs followed by a 2 month admission the [facility] with some weight gain while there. Unfortunately, since discharge, her weight has
slowly drifted down. She presents at the urging of her outpatient care team given persistent post prandial nausea with vomiting. She currently has a hoarse voice which she attributes to vomiting. She had an EGD performed in August 2023 that showed
antral erythema and bilious gastric fluid with placement on omeprazole thereafter. She notes having BM's about every other day prior to presentation, and is currently having multiple BM's after Mag citrate given by gastroenterology. She reports no
appetite for the past few years but has been able to force herself to eat in the past, now nausea and vomiting has prevented this. She has been able to drink Boost and has multiple bottles at bedside which is sips throughout the day, but notes that
solid food cause her symptoms to recur.
Past Medical History
Past Medical History: Asthma, GERD, Psychiatric (ARFID, anxiety/depression) and Other (hypermobility spectrum disorder)
Past Surgical History: Other ([place])
Social History
Tobacco: Non-Smoker
Alcohol: None
Drug: Marijuana (none since August)
Family History
Family History: Reviewed & Not Pertinent
Allergies / Home Medications
Allergy/AdvReac Type Severity Reaction Status Date / Time
No Known Allergies Allergy Verified 04/11/20 02:14
�Medication �Instructions �Recorded �Confirmed �Type
fexofenadine-pseudoephedrine ER 1 ea PO DAILY PRN allergies 01/08/17 12/16/23 History
180 mg-240 mg tablet,ext.release
24 hr (Lakisha-D 24 Hour)
clonazepam 1 mg tablet 1 mg PO BID PRN anxiety 12/16/23 12/16/23 History
clonazepam 1 mg tablet (Klonopin) 1 mg PO DAILY Mental Health/Anxiety 12/16/23 12/16/23 History
escitalopram oxalate 10 mg tablet 10 mg PO DAILY mental health 12/16/23 12/16/23 History
(Lexapro)
escitalopram oxalate 20 mg tablet 20 mg PO DAILY mental health 12/16/23 12/16/23 History
lamotrigine 200 mg tablet 200 mg PO DAILY mental health 12/16/23 12/16/23 History
(Lamictal)
ondansetron HCl 4 mg tablet 4 mg PO Q6H PRN nausea 12/16/23 12/16/23 History
Review of Systems
-
History Source: Patient and Family
All other systems: Negative unless noted
A 10 point review of systems was completed, and was negative except as per HPI.
Physical Exam
Vital Signs
Temp Pulse Resp BP Pulse Ox
98.3 F 77 16 97/56 99
12/18/23 07:00 12/18/23 07:00 12/18/23 07:00 12/18/23 07:00 12/18/23 07:00
12/17/23 12/18/23 12/19/23
06:59 06:59 06:59
Actual Weight 57.323 kg 55.111 kg
Body Mass Index (BMI) 18.0
Lab Results
12/17/23 05:40
12/17/23 05:40
WBC 6.2 10^3/uL (4.8-10.8) 12/17/23 05:40
Hgb 10.9 g/dL (12.0-16.0) L 12/17/23 05:40
Hct 32.7 % (37.0-47.0) L 12/17/23 05:40
Plt Count 172 10^3/uL (130-400) 12/17/23 05:40
Abs Immat Gran (auto) 0.0 10^3/uL (0-0.05) 12/17/23 05:40
Neutrophils % 52.4 % (42.2-75.2) 12/17/23 05:40
Physical Exam
General: Poor Appetite; Negative Well Nourished
HEENT: Moist Mucous Membranes
GI: Soft, Non Tender and Non Distended
Skin: Warm
Neuro: Awake, Alert and AO x 3
Psych: Calm
Data Reviewed
-
CT Scan: Image Personally Visualized and interpreted, Report Reviewed by me, Discussed with Physician, Discussed with Nurse, Discussed with Patient and Discussed with Family
Labs: Labs Reviewed by me, Discussed with Physician, Discussed with Nurse and Discussed with Patient
Old Records: Reviewed
Assessment / Plan
-
23 yo female h/o ARFID, asthma, hypermobility, GERD and recent weight loss in July of about 30 lbs followed by a 2 month admission the [facility] with some weight gain while there. Unfortunately, since discharge, her weight has slowly
drifted down with post prandial nausea and vomiting. She has been able to keep Boost down but has difficulty with solid foods. 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 Discussed options with patient and her mother who is at bedside. Would recommend
Jejunal feeding tube either placed nasogastrically via EGD (lowest risk) vs surgically in order to bypass the duodenal obstruction. Ideally, with weight gain, she will have resolution and not require future surgery for bypass. Labs including
electrolytes without significant abnormality.
--Tentative endoscopic [place] tube placement Thursday, will d/w GI team to coordinate care
--Continue protein supplements
--Dietary consult for TF recs and CM consult for arrangement of supplies at home/vna
[2023-12-18] MEDS: KLONOPIN 1 MG PO ×2 (13:23→22:34)
[2023-12-18] MEDS: HEPARIN 5000 UNITS SC ×2 (13:23→22:27)
[2023-12-18] MEDS: SENOKOT-S 1 TABLET PO (13:24)
[2023-12-18] MEDS: LEXAPRO 20 MG PO (13:24)
[2023-12-18] MEDS: LAMICTAL 200 MG PO (13:26)
--- NOTE | 2023-12-18 14:44 | W.PN.HOSP.TC ---
Today's Communication/Plan
-
Monitor oral intake and electrolytes.
Continue supplements.
For NG jejunostomy placement on 12/20
Assessment / Plan
Assessment / Plan
Impression/plan:
Presentation with persistent nausea and vomiting with food consumption leading to low oral intake.
Cachexia with BMI of 18.
Being treated for eating disorder with prior history of inpatient treatment and psychiatry follow-up.
PTSD.
Abdominal examination benign.
No electrolytes abnormalities.
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
Upper GI series with mildly dilated proximal and mid duodenum with abrupt transition. Pattern is suspicious for SMA/nutcracker syndrome.
Discussed with GI and general surgery.
At this point most optimal plan would be placement of NG jejunostomy with attempt to build up nutrition with hope of improvement of mesenteric fat bulk with widening of angulation between the aorta and superior mesenteric artery. Tube will be
placed by surgery on Wednesday 12/20.
Constipation management.
Psychiatry input appreciated with recommendation to reduce dose of Lexapro
Consider benzodiazepines prior to oral intake.
Asthma with no exacerbation.
Prior marijuana use, currently denies any illicit substances.
Anticipated Discharge: 24 - 48 hours
Subjective/Interval History
-
Date of Service: December 18, 2023
Objective Data
-
Vital Signs:
Vital Signs
Temp Pulse Resp BP Pulse Ox
98.3 F 77 16 97/56 99
12/18/23 07:00 12/18/23 07:00 12/18/23 07:00 12/18/23 07:00 12/18/23 07:00
I&O
12/17/23 12/18/23 12/19/23
06:59 06:59 06:59
Intake Total 120 / 120 600 / 600
Balance 120 / 120 600 / 600
Physical Exam
-
General: Well Developed and No Apparent Distress
HEENT: Normocephalic, Atraumatic and Moist Mucous Membranes
Respiratory: Clear to Auscultation
Cardiac: Regular Rhythm and S1/S2; Negative Murmur, Rub or Gallop
GI: Soft, Nontender, Nondistended and Normal Bowel Sounds; Negative Organomegaly
Rectal: Deferred by Provider
Musculoskeletal: No Clubbing, No Cyanosis and No Edema
Skin: Negative Rash
Neuro: Nonfocal/Grossly Intact
--- NOTE | 2023-12-18 14:53 | CM ---
wellness program manager following for d/c planning
Received consult - for home services/tube feedings
Met with pt, mother at bedside
Offered options home infusion - no preference
Spoke with Carson at [facility] [phone]
Pt for [place] tube placement - tentative scheduled for Thursday12/21/2023
Will need tube feedings, pump, supplies, VN
Clinicals and Face sheet faxed to [facility] for review - [phone]
[2023-12-18 15:00] VITALS: BP 93/58
[2023-12-18] MEDS: SENOKOT-S PO (22:25)
[2023-12-18 23:00] VITALS: BP 96/65
[2023-12-19 06:00] VITALS: BMI 18.1
[2023-12-19 07:00] VITALS: BP 96/50
[2023-12-19 07:31] LABS: Blood Urea Nitrogen 10 mg/dl (7-17); Calcium 10.2 mg/dl (8.4-10.2); Carbon Dioxide 24 mmol/L (22-30); Chloride 107 mmol/L (98-107); Estimated Creatinine Clearance > 125 ml/min; Glucose 95 mg/dl (70-99); Magnesium 1.8 mg/dl (1.6-2.3); Phosphorus 5.5 mg/dl (2.5-4.5); Sodium 140 mmol/L (135-145); eGFR > 60.00
[2023-12-19 07:38] LABS: Prealbumin (Transthyretin) 17.2 mg/dl (17.6-36.0)
--- NOTE | 2023-12-19 08:21 | W.PN.HOSP.TC ---
Today's Communication/Plan
-
Continue present management while awaiting GJ placement early next week
Prealbumin level together with her clinical presentation consistent with moderate to severe protein calorie malnutrition
Assessment / Plan
Assessment / Plan
Impression/plan:
Presentation with persistent nausea and vomiting with food consumption leading to low oral intake.
Cachexia with BMI of 18.
Being treated for eating disorder with prior history of inpatient treatment and psychiatry follow-up.
PTSD.
Abdominal examination benign.
No electrolytes abnormalities.
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
Upper GI series with mildly dilated proximal and mid duodenum with abrupt transition. Pattern is suspicious for SMA/nutcracker syndrome.
Discussed with GI and general surgery.
At this point most optimal plan would be placement of NG jejunostomy with attempt to build up nutrition with hope of improvement of mesenteric fat bulk with widening of angulation between the aorta and superior mesenteric artery. Tube will be
placed by surgery on Wednesday 12/20.
Constipation management.
Psychiatry input appreciated with recommendation to reduce dose of Lexapro
Consider benzodiazepines prior to oral intake.
Asthma with no exacerbation.
Prior marijuana use, currently denies any illicit substances.
Anticipated Discharge: 24 - 48 hours
Subjective/Interval History
-
Date of Service: December 19, 2023
No issues or complaints other than 'I have 0 appetite all the time.'
Objective Data
-
Labs:
Laboratory Results
12/19/23
06:41
Sodium 140
Potassium 4.0
Chloride 107
Carbon Dioxide 24
BUN 10
Creatinine 0.6
Glucose 95
Calcium 10.2
Vital Signs:
Vital Signs
Temp Pulse Resp BP Pulse Ox
98.5 F 64 16 96/50 96
12/19/23 07:00 12/19/23 07:00 12/19/23 07:00 12/19/23 07:00 12/19/23 07:00
I&O
12/18/23 12/19/23 12/20/23
06:59 06:59 06:59
Intake Total 600 / 600 480 / 480
Balance 600 / 600 480 / 480
Review of Systems
-
Constitutional: Reports No Appetite
Physical Exam
-
General: Cachectic
HEENT: Normocephalic
Respiratory: Clear to Auscultation
Cardiac: Regular Rhythm
Neuro: Awake, Alert and Oriented
Data Reviewed
-
Total Time Spent with Patient (in minutes): 45
Labs: Labs Reviewed by me (Prealbumin 17.2)
[2023-12-19] MEDS: KLONOPIN 1 MG PO (08:39)
[2023-12-19] MEDS: HEPARIN 5000 UNITS SC ×2 (08:39→20:35)
[2023-12-19] MEDS: SENOKOT-S 1 TABLET PO ×2 (08:39→20:36)
[2023-12-19] MEDS: LAMICTAL 200 MG PO (08:41)
[2023-12-19] MEDS: LEXAPRO 20 MG PO (08:42)
[2023-12-19] MEDS: ZOFRAN 4 MG IV (13:17)
[2023-12-19 15:00] VITALS: BP 103/61
--- NOTE | 2023-12-19 16:50 | W.PN.UPDATE ---
Update Note
Progress Note Update
Pt seen at bedside with mother present, chart reviewed & pt evaluated. She reports feeling some relief at having some answers now and not being told that 'it's just all in my head'. Expresses hopefulness that now there will be a more clear focus for
treatment and that she can start gaining weight and feeling better again. Is tearful when discussing her weight as she describes struggling with her symptoms for several years and wanting to gain weight but being unable to. Says that low weight
causes mood dysregulation and contributes negatively to mental health, is looking forward to starting to gradually increase intake. Although tearful attimes, she is able to smile spontaneously & appropriately at other times and expresses a positive
and hopeful outlook.
No changes to medication at this time
Getting GJ tube on Thursday
Psych will continue to follow
--- NOTE | 2023-12-19 16:59 | W.PN.GI.CBS2 ---
Today's Communication / Plan
-
NJ tube next week, GI signing off
Assessment / Plan
-
23-year-old female with history of restrictive eating disorder, bipolar, asthma, anxiety, hypermobility disorder presents to the emergency room with approximately 10 pound weight loss since leaving treatment center for anorexia, advised to come to
the hospital for assessment of her nutritional status and need for feeding tube.
CT 12/15:1. At the time of the current examination, there is no abnormal dilation of the stomach or the proximal duodenum to suggest SMA syndrome. There is a paucity of intra-abdominal fat and there is acute angulation between the aorta and the
superior mesenteric artery which exerts mass effect against the left renal vein. This would be of clinical significance if there are any symptoms which correlate with Nutcracker syndrome. While there is flattening of the third portion of the
duodenum between the SMA and the aorta, there is no abnormal dilation at this time as above.
2. 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 No malrotation is identified.
3. Indistinct subcentimeter opacities at the right middle lobe as above, incompletely imaged. Bronchiolitis is a differential consideration. If there is any clinical concern, this could be further evaluated with CT chest.
4. Mild periportal edema and mild prominence of the inferior vena cava likely related to hydration status.
5. Incidental small simple left renal cyst.
6. Small cystic structure at the right adnexa, within expected physiologic size limits for functional cyst in a premenopausal patient. There is also very small volume simple fluid attenuation free fluid within the pelvis. This can be seen as a
physiologic process in premenopausal patient, can also be seen in association with small cyst rupture.
UGIS 12/17:
Mildly dilated proximal and mid duodenum with abrupt transition. Pattern is suspicious for SMA/Nutcracker Syndrome.
Surgery subsequently consulted recommended endoscopic nasojejunal tube in OR on Thursday.
GI will sign off.
Please call with ?s
Outpatient f/u scheduled with Dr. Do on 02/02 @9:00 AM
Subjective
Subjective
Date of Service: December 19, 2023
c/o nausea attempting to pick at food
Objective
Data Reviewed
Laboratory Data:
Laboratory Results
12/17/23 05:40
12/19/23 06:41
Laboratory Results
Phosphorus 5.5 mg/dl (2.5-4.5) H 12/19/23 06:41
Magnesium 1.8 mg/dl (1.6-2.3) 12/19/23 06:41
Total Bilirubin 0.6 mg/dl (0.2-1.3) 12/17/23 05:40
AST 23 U/L (14-36) 12/17/23 05:40
ALT 16 U/L (0-35) 12/17/23 05:40
Alkaline Phosphatase 51 U/L (38-126) 12/17/23 05:40
Vital Signs and I&O:
Vital Signs
Temp Pulse Resp BP Pulse Ox
98.7 F 63 17 103/61 100
12/19/23 15:00 12/19/23 15:00 12/19/23 15:00 12/19/23 15:00 12/19/23 15:00
I&O
12/18/23 12/19/23 12/20/23
06:59 06:59 06:59
Intake Total 600 / 600 480 / 480
Balance 600 / 600 480 / 480
Physical Exam
Physical Exam
HEENT: Other (cachetic)
GI: Non Distended and Non Tender
[2023-12-19] MEDS: PEPCID 20 MG PO (20:36)
[2023-12-19 23:00] VITALS: BP 98/60
[2023-12-20] MEDS: KLONOPIN 1 MG PO ×3 (01:26→23:39)
[2023-12-20 06:00] VITALS: BMI 18.0
[2023-12-20 07:00] VITALS: BP 119/68
--- NOTE | 2023-12-20 08:33 | W.PN.HOSP.TC ---
Today's Communication/Plan
-
For nasojejunal tube insertion tomorrow
We discussed the options of adding a appetite stimulant such as Remeron but would have some misgivings with her continued titration of Lexapro and this setting
Assessment / Plan
Assessment / Plan
Impression/plan:
Presentation with persistent nausea and vomiting with food consumption leading to low oral intake.
Cachexia with BMI of 18.
Being treated for eating disorder with prior history of inpatient treatment and psychiatry follow-up.
PTSD.
Abdominal examination benign.
No electrolytes abnormalities.
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
Upper GI series with mildly dilated proximal and mid duodenum with abrupt transition. Pattern is suspicious for SMA/nutcracker syndrome.
Discussed with GI and general surgery.
At this point most optimal plan would be placement of NG jejunostomy with attempt to build up nutrition with hope of improvement of mesenteric fat bulk with widening of angulation between the aorta and superior mesenteric artery. Tube will be
placed by surgery on Wednesday 12/20.
Constipation management.
Psychiatry input appreciated with recommendation to reduce dose of Lexapro/we discussed the option of being placed on Remeron to address her appetite promised I would raise it with the primary care team
Consider benzodiazepines prior to oral intake.
Asthma with no exacerbation.
Prior marijuana use, currently denies any illicit substances.
Anticipated Discharge: 24 - 48 hours
Subjective/Interval History
-
Date of Service: December 20, 2023
Had some indigestion after eating a pepper sandwich ameliorated somewhat by a dose of Pepcid she is asking for a appetite stimulant we discussed options including Remeron olanzapine and Megace with risk and benefits offered in each 1
Objective Data
-
Vital Signs:
Vital Signs
Temp Pulse Resp BP Pulse Ox
98.3 F 56 16 98/60 99
12/19/23 23:00 12/19/23 23:00 12/19/23 23:00 12/19/23 23:00 12/19/23 23:00
I&O
12/19/23 12/20/23 12/21/23
06:59 06:59 06:59
Intake Total 1020 / 1020 960 / 960
Balance 1020 / 1020 960 / 960
Review of Systems
-
History Source: Patient
All other systems: Reviewed and negative
EENT: Reports No Symptoms Reported
Respiratory: Reports No Symptoms
Cardiac: Reports No Symptoms
Abdomen/GI: Reports No Symptoms
Skin: Reports No Symptoms
Physical Exam
-
General: Well Developed and Cachectic
Respiratory: Clear to Auscultation
Cardiac: Regular Rhythm
GI: Soft
Data Reviewed
-
Total Time Spent with Patient (in minutes): 56
Labs: Labs Reviewed by me
[2023-12-20] MEDS: HEPARIN 5000 UNITS SC ×2 (09:18→20:32)
[2023-12-20] MEDS: PEPCID 20 MG PO ×2 (09:20→20:33)
[2023-12-20] MEDS: LAMICTAL 200 MG PO (09:20)
[2023-12-20] MEDS: LEXAPRO 20 MG PO (09:20)
[2023-12-20] MEDS: SENOKOT-S 1 TABLET PO (09:20)
[2023-12-20] MEDS: ZOFRAN 4 MG IV (12:03)
[2023-12-20 15:00] VITALS: BP 115/70
--- NOTE | 2023-12-20 19:06 | W.PN.UPDATE ---
Update Note
Progress Note Update
Pt seen & evaluated at bedside. Is nervous about procedure tomorrow but also hopeful it will help her get on the path of regaining weight & getting back to her life. Discussed option of remeron for appetite stimulation, which pt is open to if its
needed - she does express wanting to get procedure done first and seeing how she feels after that. DIscussed adding remeron on as an as needed for the time being so that if she tolerates NG tube well and feels she needs help with appetite, she will
have the remeron available. She also notes that zofran 4mg does not help with nausea much at all - she takes it before eating to help manage nausea as it often will prevent her eating more, however 4mg does not make much of a difference. Discussed
trial of 8mg, as she does need better nausea control in the short term so that she has one less obstacle in her way as she works on re-establishing nutrition.
Pt was appropriately tearful when discussing her struggles with food as she feels she misses out on many bonding experiences with friends and coworkers, as gatherings often center around food - she is looking forward to being able to take part in
this again someday soon.
Continue zofran 4mg prn, but adding 8mg bid prn as well for times when nausea is worse (she feels sleepy from it so at times would be unable to take 8mg and would take 4mg instead)
prn remeron 7.5mg hs should continue this on discharge as well
continue lexapro 20mg, no other changes to medication at this time
[2023-12-20] MEDS: ZOFRAN ODT (ORALLY DISINTEGRATING) 8 MG PO (20:33)
[2023-12-20 23:20] VITALS: BP 104/69
[2023-12-20] MEDS: SENOKOT-S PO (23:35)
[2023-12-21 06:00] VITALS: BMI 17.7
[2023-12-21 07:00] VITALS: BP 93/57
--- NOTE | 2023-12-21 09:10 | W.SUR.PREOP ---
Pre-Operative Surgical Note
-
I have examined this patient prior to the performance of the scheduled procedure.
The patient's condition is unchanged from the time of the current History and
Physical and the patient is able to undergo the scheduled procedure.
--- NOTE | 2023-12-21 09:10 | W.PN.GS2 ---
Today's Communication / Plan
-
OR today for endoscopic for NJT placement.
Assessment / Plan
-
This is a 23-year-old female with a history of anorexia who presents with poor p.o. intake found to have potential SMA syndrome on upper GI imaging.
Will plan for an endoscopic nasojejunal tube placement into D3/4 past the site of potential obstruction.
And nutrition consult, will okay for trickle tube feeds tonight after the tube was inserted. No meds through the tube. Flush tube daily and after each use.
Time Spent
Total Time Spent with Patient (in minutes): 20
Subjective Data
-
Date of Service: December 21, 2023
Interval Events:
No acute events overnight. Slept well. Pain Controlled. Endorses nausea but denies vomiting, +bowel function. Tolerating diet.
Objective Data
-
Intake and Output
12/20/23 12/21/23 12/22/23
06:59 06:59 06:59
Intake Total 1020 / 1020 1740 / 1740
Balance 1020 / 1020 1740 / 1740
Intake:
Oral fluids 1020 / 1020 1740 / 1740
Other:
Number of approximated MODERATE 4 2
amounts of urine
Vital Signs
Temp Pulse Resp BP Pulse Ox
98.2 F 61 17 93/57 97
12/21/23 07:00 12/21/23 07:00 12/21/23 07:00 12/21/23 07:00 12/21/23 07:00
Lab Results
12/17/23 05:40
12/19/23 06:41
Calcium 10.2 mg/dl (8.4-10.2) 12/19/23 06:41
Phosphorus 5.5 mg/dl (2.5-4.5) H 12/19/23 06:41
Magnesium 1.8 mg/dl (1.6-2.3) 12/19/23 06:41
Total Bilirubin 0.6 mg/dl (0.2-1.3) 12/17/23 05:40
AST 23 U/L (14-36) 12/17/23 05:40
ALT 16 U/L (0-35) 12/17/23 05:40
Alkaline Phosphatase 51 U/L (38-126) 12/17/23 05:40
Total Protein 6.0 g/dl (6.3-8.2) L 12/17/23 05:40
Albumin 3.6 g/dl (3.5-5.0) 12/17/23 05:40
Physical Exam
-
GENERAL/NEURO: Awake, Alert, no distress
CHEST: Unlabored breathing on RA
ABDOMEN: Soft, Non-Tender, Non-Distended, cachectic.
[2023-12-21] MEDS: HEPARIN 5000 UNITS SC ×2 (09:32→21:10)
[2023-12-21] MEDS: ZOFRAN 4 MG IV ×2 (09:45→19:22)
--- NOTE | 2023-12-21 11:27 | CM ---
Addendum entered by Xenia Rodriguez 12/21/23 14:43:
Spoke with Brittany at [facility] - unable to accept referral
[facility]
Original Note:
Case management following for d/c planning
Pt for NJT placement today
Spoke with Ivy at [facility] - can provide enteral feeds/pump - will need nursing
Cost - pt has met deductible for year - no additional cost
[2023-12-21] MEDS: LAMICTAL PO (13:19)
[2023-12-21] MEDS: SENOKOT-S PO (13:19)
[2023-12-21] MEDS: PEPCID PO (13:19)
[2023-12-21] MEDS: KLONOPIN PO (13:19)
[2023-12-21] MEDS: LEXAPRO PO (13:19)
[2023-12-21] MEDS: LEXAPRO 20 MG PO (14:50)
[2023-12-21] MEDS: PEPCID 20 MG PO ×2 (14:50→21:10)
[2023-12-21] MEDS: LAMICTAL 200 MG PO (14:51)
[2023-12-21] MEDS: SENOKOT-S 1 TABLET PO ×2 (14:51→21:10)
[2023-12-21] MEDS: KLONOPIN 1 MG PO ×2 (14:55→19:22)
[2023-12-21 15:00] VITALS: BP 96/68
--- NOTE | 2023-12-21 17:43 | W.PN.HOSP.TC ---
Today's Communication/Plan
-
Pending NG tube placement.
Assessment / Plan
Assessment / Plan
Impression/plan:
Presentation with persistent nausea and vomiting with food consumption leading to low oral intake.
Cachexia with BMI of 18.
Being treated for eating disorder with prior history of inpatient treatment and psychiatry follow-up.
PTSD.
Abdominal examination benign.
No electrolytes abnormalities.
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
Upper GI series with mildly dilated proximal and mid duodenum with abrupt transition. Pattern is suspicious for SMA/nutcracker syndrome.
Discussed with GI and general surgery.
At this point most optimal plan would be placement of NG jejunostomy with attempt to build up nutrition with hope of improvement of mesenteric fat bulk with widening of angulation between the aorta and superior mesenteric artery. Tube will be
placed by surgery on Wednesday 12/20.
Constipation management.
Moderate to severe protein calorie malnutrition.
Calorie count on average 431 kcal with 9 g protein daily.
Psychiatry input appreciated with recommendation to reduce dose of Lexapro/we discussed the option of being placed on Remeron to address her appetite promised I would raise it with the primary care team
Consider benzodiazepines prior to oral intake.
Asthma with no exacerbation.
Prior marijuana use, currently denies any illicit substances.
Anticipated Discharge: 24 - 48 hours
Subjective/Interval History
-
Date of Service: December 21, 2023
Objective Data
-
Vital Signs:
Vital Signs
Temp Pulse Resp BP Pulse Ox
98.3 F 70 18 96/68 98
12/21/23 15:00 12/21/23 15:00 12/21/23 15:00 12/21/23 15:00 12/21/23 15:00
I&O
12/20/23 12/21/23 12/22/23
06:59 06:59 06:59
Intake Total 1020 / 1020 1740 / 1740 540 / 540
Balance 1020 / 1020 1740 / 1740 540 / 540
Physical Exam
-
General: Well Developed and No Apparent Distress
HEENT: Normocephalic, Atraumatic and Moist Mucous Membranes
Respiratory: Clear to Auscultation
Cardiac: Regular Rhythm and S1/S2; Negative Murmur, Rub or Gallop
GI: Soft, Nontender, Nondistended and Normal Bowel Sounds; Negative Organomegaly
Rectal: Deferred by Provider
Musculoskeletal: No Clubbing, No Cyanosis and No Edema
Skin: Negative Rash
Neuro: Nonfocal/Grossly Intact
--- NOTE | 2023-12-21 22:00 | PTCARENOTE ---
In anticipation of the OR tomorrow, pt showered, gown and linens changed, and CHG wipes provided. Will continue to monitor.
[2023-12-21 23:39] VITALS: BP 91/55
[2023-12-22] VITALS (8 sets, daily range): BP systolic 10–130; BP diastolic 59–83; BMI 17.4
[2023-12-22] MEDS: LAMICTAL 200 MG PO (08:12)
[2023-12-22] MEDS: SENOKOT-S 1 TABLET PO ×2 (08:12→19:56)
[2023-12-22] MEDS: LEXAPRO 20 MG PO (08:13)
[2023-12-22] MEDS: PEPCID 20 MG PO ×2 (08:13→19:56)
[2023-12-22] MEDS: KLONOPIN 1 MG PO ×2 (08:13→22:14)
[2023-12-22 08:48] LABS: Blood Urea Nitrogen 16 mg/dl (7-17); Calcium 10.5 mg/dl (8.4-10.2); Carbon Dioxide 24 mmol/L (22-30); Chloride 106 mmol/L (98-107); Estimated Creatinine Clearance 92 ml/min; Glucose 95 mg/dl (70-99); Potassium 4.1 mmol/L (3.5-5.1); Sodium 139 mmol/L (135-145); eGFR > 60.00
[2023-12-22] MEDS: HEPARIN SC (08:54)
--- NOTE | 2023-12-22 10:32 | CM ---
Case management following for d/c planning
Pt accepted by [facility] for nursing when d/c'ed - can start Sunday 12/24 per Kita [phone]
[facility] to provide enteral products and pump
Pt for IJ tube placement
CM bella cont to follow for d/c needs
--- NOTE | 2023-12-22 11:42 | W.PN.UPDATE ---
Update Note
Progress Note Update
Patient seen, chart reviewed, discussed with RN. No acute issues overnight. Unfortunately, her feeding tube placement was rescheduled until today related to emergencies elsewhere. Angelita is very excited to have an answer to her GI issues and to know
'I am not crazy'. Remeron was discussed previously with another provider however, Angelita would truly like to see how she does after feeding tube and continued treatment for her condition before introducing another medication. She explains it was not
that she did not have a drive to eat, it was more the symptoms she would experience when eating. I believe it is appropriate to hold off on this medication. No issues or concerns with the decrease in her Lexapro.
Impression/Recommendations: History of unspecified eating disorder; unspecified depression; PTSD - Continue Lexapro 20mg (decreased from 30mg), patient discussed with her OP psychiatrist and they will consider continued taper once medically
stable. Continue klonopin. Will hold off on Remeron as patient would like to see how she does after feeding tube placement and continued GI treatment before initiating a medication.
[2023-12-22] MEDS: ZOFRAN ODT (ORALLY DISINTEGRATING) 8 MG PO (13:28)
--- NOTE | 2023-12-22 16:44 | W.PN.HOSP.TC ---
Today's Communication/Plan
-
NG jejunostomy placement
Assessment / Plan
Assessment / Plan
Impression/plan:
Presentation with persistent nausea and vomiting with food consumption leading to low oral intake.
Cachexia with BMI of 18.
Being treated for eating disorder with prior history of inpatient treatment and psychiatry follow-up.
PTSD.
Abdominal examination benign.
No electrolytes abnormalities.
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
Upper GI series with mildly dilated proximal and mid duodenum with abrupt transition. Pattern is suspicious for SMA/nutcracker syndrome.
Discussed with GI and general surgery.
At this point most optimal plan would be placement of NG jejunostomy with attempt to build up nutrition with hope of improvement of mesenteric fat bulk with widening of angulation between the aorta and superior mesenteric artery. Tube will be
placed by surgery on Wednesday 12/20.
Constipation management.
Moderate to severe protein calorie malnutrition.
Calorie count on average 431 kcal with 9 g protein daily.
Psychiatry input appreciated with recommendation to reduce dose of Lexapro/we discussed the option of being placed on Remeron to address her appetite promised I would raise it with the primary care team
Consider benzodiazepines prior to oral intake.
Asthma with no exacerbation.
Prior marijuana use, currently denies any illicit substances.
Anticipated Discharge: 24 - 48 hours
Subjective/Interval History
-
Date of Service: December 22, 2023
Objective Data
-
Labs:
Laboratory Results
12/22/23 12/22/23
05:55 08:21
Sodium Cancelled 139
Potassium Cancelled 4.1
Chloride Cancelled 106
Carbon Dioxide Cancelled 24
BUN Cancelled 16
Creatinine Cancelled 0.8
Glucose Cancelled 95
Calcium Cancelled 10.5 H
Vital Signs:
Vital Signs
Temp Pulse Resp BP Pulse Ox
97.8 F 67 17 103/59 97
12/22/23 15:00 12/22/23 15:00 12/22/23 15:00 12/22/23 15:00 12/22/23 15:00
I&O
12/21/23 12/22/23 12/23/23
06:59 06:59 06:59
Intake Total 1740 / 1740 1020 / 1020
Balance 1740 / 1740 1020 / 1020
Physical Exam
-
General: Well Developed and No Apparent Distress
HEENT: Normocephalic, Atraumatic and Moist Mucous Membranes
Respiratory: Clear to Auscultation
Cardiac: Regular Rhythm and S1/S2; Negative Murmur, Rub or Gallop
GI: Soft, Nontender, Nondistended and Normal Bowel Sounds; Negative Organomegaly
Rectal: Deferred by Provider
Musculoskeletal: No Clubbing, No Cyanosis and No Edema
Skin: Negative Rash
Neuro: Nonfocal/Grossly Intact
--- NOTE | 2023-12-22 16:47 | W.IMMPOSTOP ---
Surgical Immed Post Op Note
-
Primary Surgeon: Ruddy Hamlin MD
Assisting Surgeon: None
Pre-op Diagnosis: SMA syndrome
Post-op Diagnosis: Same
Procedure Performed: Endoscopic guided nasojejunal tube placement
Anesthesia Type: General
Specimen / Cultures: None
Estimated Blood Loss: 1 cc
Complications: None
Operative Findings: Somewhat tight passage endoscopically across D3 as one would expect with SMA syndrome. Scope and feeding tube passed beyond this and feeding tube clipped in place into the distal D3 area. Noted to be 70 centimeters at the nose.
POST OP PLAN:
Imaging: XR
Labs: None
Diet: Clears tonight, okay to start trickle tube feeds and advance as tolerated.
Analgesia: Tylenol 650mg q6 Carlota, okay for throat lozenges
Neuro/vascular checks: q4h
AC/AP: Ok for DVT PPx
Activity: Ad Sophy
Wound/Incisions/Drains: Okay to use Dobbhoff feeding tube tonight with trickle tube feeds, can advance as tolerated. No meds through tube. Flush after each use.
Abx: None
Dispo: RNF
[2023-12-22] MEDS: DILAUDID 0.25 MG IV (17:35)
[2023-12-22] MEDS: ANESTHETIC LOZENGE 1 LOZENGE PO (18:24)
[2023-12-22] MEDS: HEPARIN 5000 UNITS SC (19:55)
[2023-12-22] MEDS: CHLORASEPTIC/SORE THROAT SPRAY 1 SPRAY PO ×2 (19:57→22:15)
[2023-12-23 03:33] VITALS: BP 119/66
--- NOTE | 2023-12-23 03:37 | PTCARENOTE ---
Pt started on trickle tube feeding Jevity 1.5 @ 10ml/hr with 15ml flush per hour started @ 1999. Pt at this time tolerating tube feed no s/s of N/V, denies any abdominal discomfort or bloating. Pt reports mild pain in throat from tube relief
provided by Chloraseptic spray.
[2023-12-23 07:20] VITALS: BP 93/66
[2023-12-23] MEDS: PEPCID 20 MG PO ×2 (07:45→20:23)
[2023-12-23] MEDS: HEPARIN 5000 UNITS SC ×2 (07:45→20:23)
[2023-12-23] MEDS: LAMICTAL 200 MG PO (07:45)
[2023-12-23] MEDS: KLONOPIN 1 MG PO ×2 (07:45→22:20)
[2023-12-23] MEDS: LEXAPRO 20 MG PO (07:45)
[2023-12-23] MEDS: SENOKOT-S 1 TABLET PO ×2 (07:45→20:23)
--- NOTE | 2023-12-23 09:31 | W.PN.UPDATE ---
Update Note
Progress Note Update
Attempted to see pt, she is in the bathroom and requested additional time. Will f/u later today. TF ordered, adv toward goal 50cc/hr and updated flushes to 25cc hr. AM nutritional labs ordered as well.
--- NOTE | 2023-12-23 09:55 | W.PN.GS2 ---
Today's Communication / Plan
-
Adv TF to goal
Assessment / Plan
-
23F with SMA syndrome
PPD1 s/p successful endoscopic nasojejunal tube placement into D3/4 past the site of potential obstruction.
TF to adv 10cc Q8H to goal 50cc/hr. Flushes incr to 25cc/hr per nutrition recs.
No meds through the tube.
AM nutritional labs ordered.
DVT ppx
Subjective Data
-
Date of Service: December 23, 2023
AFVSS, malick TF thus far at trickle rate, denies abd pain, denies n/v, passed a BM (had been constipated)
Objective Data
-
Intake and Output
12/22/23 12/23/23 12/24/23
06:59 06:59 06:59
Intake Total 1020 / 1020 545 / 545
Balance 1020 / 1020 545 / 545
Intake:
Oral fluids 1020 / 1020 300 / 300
Tube feeding 110 / 110
Feeding tube flush amount 135 / 135
Other:
Number of approximated SMALL 2
amounts of urine
Number of approximated MODERATE 2 1
amounts of urine
Vital Signs
Temp Pulse Resp BP Pulse Ox
98.5 F 78 17 93/66 99
12/23/23 07:20 12/23/23 07:20 12/23/23 07:20 12/23/23 07:20 12/23/23 07:20
Lab Results
12/17/23 05:40
12/22/23 08:21
Calcium 10.5 mg/dl (8.4-10.2) H 12/22/23 08:21
Phosphorus 5.5 mg/dl (2.5-4.5) H 12/19/23 06:41
Magnesium 1.8 mg/dl (1.6-2.3) 12/19/23 06:41
Total Bilirubin 0.6 mg/dl (0.2-1.3) 12/17/23 05:40
AST 23 U/L (14-36) 12/17/23 05:40
ALT 16 U/L (0-35) 12/17/23 05:40
Alkaline Phosphatase 51 U/L (38-126) 12/17/23 05:40
Total Protein 6.0 g/dl (6.3-8.2) L 12/17/23 05:40
Albumin 3.6 g/dl (3.5-5.0) 12/17/23 05:40
Physical Exam
-
Gen: NAD, DHT in place
Abd: soft, nt, nd
[2023-12-23 11:40] VITALS: BP 100/66
[2023-12-23] MEDS: ZOFRAN 4 MG IV (14:09)
[2023-12-23] MEDS: ANESTHETIC LOZENGE 1 LOZENGE PO ×2 (14:15→19:16)
--- NOTE | 2023-12-23 15:21 | CM ---
Nasojejunal tube placement. Advance TF to goal. Anticipate discharge on Thursday12/25/23 with initiation of services with [facility] for feeds and [facility].
[2023-12-23 15:30] VITALS: BP 118/68
--- NOTE | 2023-12-23 16:44 | W.PN.HOSP.TC ---
Today's Communication/Plan
-
Initiate tube feeding
Advance to full liquid diet
Monitor electrolytes
Assessment / Plan
Assessment / Plan
Impression/plan:
Presentation with persistent nausea and vomiting with food consumption leading to low oral intake.
Cachexia with BMI of 18.
Being treated for eating disorder with prior history of inpatient treatment and psychiatry follow-up.
PTSD.
Abdominal examination benign.
No electrolytes abnormalities.
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
Upper GI series with mildly dilated proximal and mid duodenum with abrupt transition. Pattern is suspicious for SMA/nutcracker syndrome.
Discussed with GI and general surgery.
Status post NG jejunostomy with attempt to build up nutrition with hope of improvement of mesenteric fat bulk with widening of angulation between the aorta and superior mesenteric artery.
Tube feeding initiated with slow advancement
Monitor electrolytes for refeeding syndrome
Advance to full liquid diet
Moderate to severe protein calorie malnutrition.
Calorie count on average 431 kcal with 9 g protein daily.
Psychiatry input appreciated with recommendation to reduce dose of Lexapro/we discussed the option of being placed on Remeron to address her appetite promised I would raise it with the primary care team
Consider benzodiazepines prior to oral intake.
Asthma with no exacerbation.
Prior marijuana use, currently denies any illicit substances.
Anticipated Discharge: 24 - 48 hours
Subjective/Interval History
-
Date of Service: December 23, 2023
Objective Data
-
Vital Signs:
Vital Signs
Temp Pulse Resp BP Pulse Ox
98.6 F 65 17 118/68 98
12/23/23 15:30 12/23/23 15:30 12/23/23 15:30 12/23/23 15:30 12/23/23 15:30
I&O
12/22/23 12/23/23 12/24/23
06:59 06:59 06:59
Intake Total 1020 / 0 545 / 545
Balance 0 / 0 545 / 545
Physical Exam
-
General: Well Developed and No Apparent Distress
HEENT: Normocephalic, Atraumatic and Moist Mucous Membranes
Respiratory: Clear to Auscultation
Cardiac: Regular Rhythm and S1/S2; Negative Murmur, Rub or Gallop
GI: Soft, Nontender, Nondistended and Normal Bowel Sounds; Negative Organomegaly
Rectal: Deferred by Provider
Musculoskeletal: No Clubbing, No Cyanosis and No Edema
Skin: Negative Rash
Neuro: Nonfocal/Grossly Intact
[2023-12-23 20:32] VITALS: BP 120/69
[2023-12-23] MEDS: TYLENOL 1000 MG TUBE (22:16)
[2023-12-23] MEDS: CHLORASEPTIC/SORE THROAT SPRAY 2 SPRAY PO (23:22)
[2023-12-23 23:37] VITALS: BP 95/62
[2023-12-24 06:37] LABS: Blood Urea Nitrogen 8 mg/dl (7-17); Calcium 9.5 mg/dl (8.4-10.2); Carbon Dioxide 24 mmol/L (22-30); Chloride 107 mmol/L (98-107); Estimated Creatinine Clearance 123 ml/min; Glucose 92 mg/dl (70-99); Phosphorus 4.6 mg/dl (2.5-4.5); Potassium 3.9 mmol/L (3.5-5.1); Sodium 136 mmol/L (135-145); eGFR > 60.00
--- NOTE | 2023-12-24 07:27 | W.PN.GS2 ---
Today's Communication / Plan
-
Tube feeds to goal
Home tube feeds set up.
Begin dispo planning
Assessment / Plan
-
This is a 23F with a history of eating disorder who presents with nausea vomiting found to have possible SMA syndrome. General surgery consulted for feeding axis she is now PPD#2 endoscopic NJT into D3.
TF to adv 10cc Q8H to goal 50cc/hr. Flushes incr to 25cc/hr per nutrition recs.
No meds through the tube.
Patient to follow-up with Dr. Duke/GI as an outpatient.
Will need home tube feeds set up.
General surgery will sign off for now
Time Spent
Total Time Spent with Patient (in minutes): 20
Subjective Data
-
Date of Service: December 24, 2023
Interval Events:
No acute events overnight. Slept well. Pain Controlled. Denies Nausea/Vomiting, +bowel function. Tolerating tube feeds at 40 cc/h.
Objective Data
-
Intake and Output
12/23/23 12/24/23 12/25/23
06:59 06:59 06:59
Intake Total 545 / 545 2754 / 2754
Balance 545 / 545 2754 / 2754
Intake:
Oral fluids 300 / 300 1780 / 1780
Tube feeding 110 / 110 419 / 419
Feeding tube flush amount 135 / 135 555 / 555
Other:
Number of approximated MODERATE 1 3
amounts of urine
Vital Signs
Temp Pulse Resp BP Pulse Ox
98.0 F 69 18 95/62 100
12/23/23 23:37 12/23/23 23:37 12/23/23 23:37 12/23/23 23:37 12/23/23 23:37
Lab Results
12/17/23 05:40
12/24/23 04:33
Calcium 9.5 mg/dl (8.4-10.2) 12/24/23 04:33
Phosphorus 4.6 mg/dl (2.5-4.5) H 12/24/23 04:33
Magnesium 2.0 mg/dl (1.6-2.3) 12/24/23 04:33
Total Bilirubin 0.6 mg/dl (0.2-1.3) 12/17/23 05:40
AST 23 U/L (14-36) 12/17/23 05:40
ALT 16 U/L (0-35) 12/17/23 05:40
Alkaline Phosphatase 51 U/L (38-126) 12/17/23 05:40
Total Protein 6.0 g/dl (6.3-8.2) L 12/17/23 05:40
Albumin 3.6 g/dl (3.5-5.0) 12/17/23 05:40
Physical Exam
-
GENERAL/NEURO: Awake, Alert, no distress
CHEST: Unlabored breathing on RA
ABDOMEN: Soft, Non-Tender, Non-Distended, Dobbhoff tube in place.
[2023-12-24 07:30] VITALS: BP 129/68
[2023-12-24] MEDS: SENOKOT-S 1 TABLET PO ×2 (08:15→20:37)
[2023-12-24] MEDS: PEPCID 20 MG PO ×2 (08:15→20:36)
[2023-12-24] MEDS: LEXAPRO 20 MG PO (08:15)
[2023-12-24] MEDS: KLONOPIN 1 MG PO ×2 (08:15→22:48)
[2023-12-24] MEDS: LAMICTAL 200 MG PO (08:15)
[2023-12-24] MEDS: HEPARIN 5000 UNITS SC ×2 (08:16→20:37)
[2023-12-24 15:25] VITALS: BP 123/66
--- NOTE | 2023-12-24 15:30 | W.PN.UPDATE ---
Update Note
Progress Note Update
patient seen chart reviewed. discussed w nursing mother at bedside. patient is doing much better. i had not seen her since last week. patient reports that immediately after tube placed she was panicked that she would not be able to tolerate it but
with support of mom and staff pushed forward and now is hopeful that this will provide her the possibility of gaining weight feeling stronger etc. she said already she feels her mood has lifted and physically she feels stronger. she has been in
touch with her out patient psychiatrist who is encouraging as well. no changes made in psych meds. i agree with patient's decision not to change lexapro at this point but remeron might be considered if an alternative antidepressant is deemed
necessary. patient considering dietary support in the community and will talk w her pcp. also wants a gi clinical practice consultant to see as outpatient. she will call dr luiz bradshaw's office to see if she can see her. will sign off as she is being discharged
tomorrow.
--- NOTE | 2023-12-24 15:35 | CM ---
Anticipate discharge on Thursday12/25/23. [facility] and [facility] for feeds will arrive between 1:00 to 2:00 PM.
[facility] . [facility] spoke with Esthela at [facility] to coordinate nurse arrival time as noted above.
--- NOTE | 2023-12-24 16:06 | W.PN.HOSP.TC ---
Today's Communication/Plan
-
Tube feeding rate is up to goal.
Advanced oral intake to regular diet.
Follow electrolytes
Discharge planning
Assessment / Plan
Assessment / Plan
Impression/plan:
Presentation with persistent nausea and vomiting with food consumption leading to low oral intake.
Cachexia with BMI of 18.
Being treated for eating disorder with prior history of inpatient treatment and psychiatry follow-up.
PTSD.
Abdominal examination benign.
No electrolytes abnormalities.
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
Upper GI series with mildly dilated proximal and mid duodenum with abrupt transition. Pattern is suspicious for SMA/nutcracker syndrome.
Discussed with GI and general surgery.
Status post NG jejunostomy with attempt to build up nutrition with hope of improvement of mesenteric fat bulk with widening of angulation between the aorta and superior mesenteric artery.
Tube feeding initiated with slow advancement
Monitor electrolytes for refeeding syndrome
Advance to full liquid diet
Moderate to severe protein calorie malnutrition.
Calorie count on average 431 kcal with 9 g protein daily.
Psychiatry input appreciated with recommendation to reduce dose of Lexapro/we discussed the option of being placed on Remeron to address her appetite promised I would raise it with the primary care team
Consider benzodiazepines prior to oral intake.
Asthma with no exacerbation.
Prior marijuana use, currently denies any illicit substances.
Anticipated Discharge: Within 24 hours
Subjective/Interval History
-
Date of Service: December 24, 2023
Objective Data
-
Labs:
Laboratory Results
12/24/23
04:33
Sodium 136
Potassium 3.9
Chloride 107
Carbon Dioxide 24
BUN 8
Creatinine 0.6
Glucose 92
Calcium 9.5
Vital Signs:
Vital Signs
Temp Pulse Resp BP Pulse Ox
97.6 F 71 18 123/66 98
05/09/24 15:25 12/24/23 15:25 12/24/23 15:25 12/24/23 15:25 12/24/23 15:25
I&O
12/23/23 12/24/23 12/25/23
06:59 06:59 06:59
Intake Total 545 / 545 2754 / 2759
Balance 545 / 545 1084 / 2750
Physical Exam
-
General: Well Developed and No Apparent Distress
HEENT: Normocephalic, Atraumatic and Moist Mucous Membranes
Respiratory: Clear to Auscultation
Cardiac: Regular Rhythm and S1/S2; Negative Murmur, Rub or Gallop
GI: Soft, Nontender, Nondistended and Normal Bowel Sounds; Negative Organomegaly
Rectal: Deferred by Provider
Musculoskeletal: No Clubbing, No Cyanosis and No Edema
Skin: Negative Rash
Neuro: Nonfocal/Grossly Intact
--- NOTE | 2023-12-24 17:06 | OR.RPT ---
Operative Report
Operative Report
Patient Name: Angelita Cates
: 2000
Date of Operation: 12/22/2023
Preoperative Diagnosis: SMA syndrome
Postoperative Diagnosis: Same
Procedure(s):
Endoscopic guided nasojejunal tube placement
Surgeon(s):
Dr. Hamlin
Chemical Etch Operator(s):
None
Anesthesia: Conscious sedation
Estimated Blood Loss: 1 cc
Urine Output: None
Drains/Lines/Implants: None
Specimens:
None
HPI/Surgical Indications:
This is a 23-year-old female with a history of eating disorder, and depression who presents to our hospital for prolonged malnutrition. Workup demonstrated fairly abrupt cut off in the third portion of the duodenum with low takeoff angle of the SMA
concerning for SMA syndrome. After discussion of risks benefits and alternatives the patient elected to move forward with a nasojejunal tube placement, given the obstruction we felt it would be safer to do this under endoscopic guidance.
Findings:
There was a somewhat tight passage endoscopically across D3 as 1 would expect with SMA syndrome. The scope was advanced beyond this point with the tube in the feeding tube was clipped in place into the distal D3 area. The tube was noted to be 70
centimeters at the nose.
Procedure Description:
The patient was brought to the Operating Room and placed in the supine position. Conscious sedation was administered and mouth guard was placed. We began by performing an upper endoscopy and were able to intubate the duodenum up to D3 without any
issues. There was an area of narrowing which was somewhat tricky to get past but we were able to endoscopically. We then remove the scope and passed the nasojejunal tube through her right nare and out her mouth where a clip was used to latch onto
a 0 silk suture loop that was tied to the end of the tubing. This was then inserted into the mouth and passed the oropharynx into the esophagus and advanced carefully into the duodenum. There was a fair amount of looping in the stomach so manual
pressure was used help brace the scope and advance it into the duodenum. We are able to pass the area of narrowing and a suitable area of mucosa was identified and used clip the nasojejunal tube in place. The scope was then gently and carefully
retracted out not put undue tension or dislodge the tubing. The stomach was suctioned out and the scope was removed, ending the procedure. Overall, the patient tolerated the procedure well and was taken to the Recovery Room postoperatively in
stable condition.
I was the attending physician and performed the procedure with no assistance. I was present for all portions of the case
Ruddy Hamlin MD
[2023-12-24 23:37] VITALS: BP 107/62
[2023-12-25 06:44] LABS: Blood Urea Nitrogen 10 mg/dl (7-17); Calcium 10.2 mg/dl (8.4-10.2); Carbon Dioxide 27 mmol/L (22-30); Chloride 105 mmol/L (98-107); Estimated Creatinine Clearance 123 ml/min; Glucose 71 mg/dl (70-99); Potassium 4.4 mmol/L (3.5-5.1); Sodium 140 mmol/L (135-145); eGFR > 60.00
[2023-12-25 07:42] VITALS: BP 104/69
[2023-12-25] MEDS: HEPARIN 5000 UNITS SC ×2 (08:48→20:34)
[2023-12-25] MEDS: LEXAPRO 20 MG PO (08:48)
[2023-12-25] MEDS: KLONOPIN 1 MG PO ×2 (08:48→20:34)
[2023-12-25] MEDS: SENOKOT-S 1 TABLET PO (08:48)
[2023-12-25] MEDS: LAMICTAL 200 MG PO (08:48)
[2023-12-25] MEDS: PEPCID 20 MG PO ×2 (08:48→20:33)
--- NOTE | 2023-12-25 10:31 | CM ---
Addendum entered by Barb Gregorio RN 12/25/23 15:57:
RX faxed to [facility] with flushes and TF timing (8p-8a).
Addendum entered by Barb Gregorio RN 12/25/23 13:44:
CM spoke with patient who is willing to pay [id number] with [facility] for the TF. [facility] is requesting adjustments to the order that was faxed. CM to meet with attending to modify TF order as requested by [facility].
Original Note:
Received call from [facility] liaison. Per [facility], TF supplies are not covered through insurance with their company. It would be a $213/month fee. Per [facility], is covered under DME benefit. CM spoke with [facility], they do carry [facility]
1.5 enteral feeding and accept [employer] insurance. Clinical and order faxed to [facility] enteral health department ([phone]). Attending, patient, and RN updated on issue. [facility] will be following patient at home. Awaiting
response from [facility] regarding cost and ability to provide TF.
[2023-12-25 15:17] VITALS: BP 95/57
--- NOTE | 2023-12-25 16:13 | W.PN.HOSP.TC ---
Today's Communication/Plan
-
Tube feeds and trial of regular diet.
Disposition with ongoing arrangements for home tube feeding infusion.
Assessment / Plan
Assessment / Plan
Impression/plan:
Presentation with persistent nausea and vomiting with food consumption leading to low oral intake.
Cachexia with BMI of 18.
Being treated for eating disorder with prior history of inpatient treatment and psychiatry follow-up.
PTSD.
Abdominal examination benign.
No electrolytes abnormalities.
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
Upper GI series with mildly dilated proximal and mid duodenum with abrupt transition. Pattern is suspicious for SMA/nutcracker syndrome.
Discussed with GI and general surgery.
Status post NG jejunostomy with attempt to build up nutrition with hope of improvement of mesenteric fat bulk with widening of angulation between the aorta and superior mesenteric artery.
Tube feeding advance to the goal
Advance to regular diet
Electrolytes within normal limits with no evidence of refeeding.
Moderate to severe protein calorie malnutrition.
Calorie count on average 431 kcal with 9 g protein daily.
Psychiatry input appreciated with recommendation to reduce dose of Lexapro/we discussed the option of being placed on Remeron to address her appetite promised I would raise it with the primary care team
Consider benzodiazepines prior to oral intake.
Asthma with no exacerbation.
Prior marijuana use, currently denies any illicit substances.
Anticipated Discharge: Within 24 hours
Subjective/Interval History
-
Date of Service: December 25, 2023
Objective Data
-
Labs:
Laboratory Results
12/25/23
05:30
Sodium 140
Potassium 4.4
Chloride 105
Carbon Dioxide 27
BUN 10
Creatinine 0.6
Glucose 71
Calcium 10.2
Vital Signs:
Vital Signs
Temp Pulse Resp BP Pulse Ox
98.6 F 65 20 95/57 99
12/25/23 15:17 12/25/23 15:17 12/25/23 15:17 12/25/23 15:17 12/25/23 15:17
I&O
12/24/23 12/25/23 12/26/23
06:59 06:59 06:59
Intake Total 2754 / 2754 3865 / 3865
Balance 2754 / 2754 3865 / 3865
Physical Exam
-
General: Well Developed and No Apparent Distress
HEENT: Normocephalic, Atraumatic and Moist Mucous Membranes
Respiratory: Clear to Auscultation
Cardiac: Regular Rhythm and S1/S2; Negative Murmur, Rub or Gallop
GI: Soft, Nontender, Nondistended and Normal Bowel Sounds; Negative Organomegaly
Rectal: Deferred by Provider
Musculoskeletal: No Clubbing, No Cyanosis and No Edema
Skin: Negative Rash
Neuro: Nonfocal/Grossly Intact
[2023-12-25] MEDS: SENOKOT-S PO (20:34)
[2023-12-25 23:17] VITALS: BP 102/63
[2023-12-26 07:08] VITALS: BP 113/65
--- NOTE | 2023-12-26 07:34 | W.PN.HOSP.TC ---
Today's Communication/Plan
-
Discharge today
Assessment / Plan
Assessment / Plan
Physical Exam
General: Well Developed and No Apparent Distress
HEENT: Normocephalic, Atraumatic and Moist Mucous Membranes
Respiratory: Clear to Auscultation Bilaterally
Cardiac: Regular Rhythm and S1/S2
GI: Soft, Nontender, Nondistended and Normal Bowel Sounds
Musculoskeletal: No Cyanosis and No Edema
Skin: Warm. Dry.
Neuro: Nonfocal/Grossly Intact
Impression/plan:
Presentation with persistent nausea and vomiting with food consumption leading to low oral intake.
Cachexia with BMI of 18.
Being treated for eating disorder with prior history of inpatient treatment and psychiatry follow-up.
PTSD.
Abdominal examination benign.
No electrolytes abnormalities.
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
Upper GI series with mildly dilated proximal and mid duodenum with abrupt transition. Pattern is suspicious for SMA/nutcracker syndrome.
Dr. Morrell discussed with GI and general surgery.
Status post NG jejunostomy with attempt to build up nutrition with hope of improvement of mesenteric fat bulk with widening of angulation between the aorta and superior mesenteric artery.
Tube feeding advance to the goal
Advance to regular diet
Electrolytes within normal limits with no evidence of refeeding.
Follow-up with gastroenterology Dr. Pat Duke outpatient -- patient requested gastroenterology referral outpatient.
Moderate to severe protein calorie malnutrition.
Calorie count on average 431 kcal with 9 g protein daily.
Psychiatry input appreciated with recommendation to not to change Lexapro at this point but Remeron might be considered if an alternative antidepressant is deemed necessary
Consider benzodiazepines prior to oral intake.
Asthma with no exacerbation.
Prior marijuana use, currently denies any illicit substances.
More than 30 minutes spent in discharge including
Final examination of the patient
Summarizing hospital stay
Instructions for continuing care to all relevant caregivers
Preparation of discharge records, prescriptions, and referral forms
Total time spent (in minutes): 35
Anticipated Discharge: Today
Subjective/Interval History
-
Date of Service: December 26, 2023
Patient was seen and examined. She denied any fever, abdominal pain or any other symptoms or complaints.
Objective Data
-
Vital Signs:
Vital Signs
Temp Pulse Resp BP Pulse Ox
97.7 F 70 20 102/63 100
12/25/23 23:17 12/25/23 23:17 12/25/23 23:17 12/25/23 23:17 12/25/23 23:17
I&O
12/25/23 12/26/23 12/27/23
06:59 06:59 06:59
Intake Total 3865 / 3865 2820 / 2820
Balance 3865 / 3865 2820 / 2820
--- NOTE | 2023-12-26 09:08 | W.DS.TRANS ---
DC Summary - Counter Attendant
-
Discharge Instructions:
Discharge Diagnosis/Procedures SMA syndrome/nutcracker syndrome with low oral
intake and malnutrition status post NG
jejunostomy
Presentation with persistent nausea and vomiting
with food consumption leading to low oral
intake.
Cachexia with BMI of 18.
Being treated for eating disorder with prior
history of inpatient treatment and psychiatry
follow-up.
PTSD
Asthma
Diet Regular,Tube feeding
Activity As tolerated
Blood Work Have your CBC, CMP, Magnesium and Phosphorus
checked latest by December 27, 2023
Other Services VN
Instructions:
Stand-Alone Forms:
Changes to Home Medications: No
Discharge Medications:
DC Medications w/original date entered in [employer]
fexofenadine-pseudoephedrine ER 180 mg-240 mg tablet,ext.release 24 hr (Lakisha-D 24 Hour) 1 ea PO DAILY PRN allergies 01/08/17
clonazepam 1 mg tablet 1 mg PO BID PRN anxiety 12/16/23
clonazepam 1 mg tablet (Klonopin) 1 mg PO DAILY Mental Health/Anxiety 12/16/23
escitalopram oxalate 20 mg tablet 20 mg PO DAILY mental health 12/16/23
lamotrigine 200 mg tablet (Lamictal) 200 mg PO DAILY mental health 12/16/23
ondansetron HCl 4 mg tablet 4 mg PO Q6H PRN nausea 12/16/23
Home Medication Changes
Pending Results: No
Total time spent discharging patient (in min): 35
--- NOTE | 2023-12-26 09:09 | CM ---
Reviewed the chart notes and spoke with the patient and her mother at the bedside. Patient received a call from the [facility] RN that she wanted to come between 9-10 this morning. Problem being supplies for TF and machine will not be out
until possibly 12pm. CM left voice message for RN ([phone]) regarding above. Awaiting call back. CM continues to be available to patient/family and is monitoring medical plan for needs at discharge.
Plan: Discharge to home today with TF supplied by [facility] and [facility].
--- NOTE | 2023-12-26 09:09 | W.DCSUMMARY ---
Discharge Summary
Discharge Data
Date of Admission: 12/18/23
Date of Discharge: 12/26/23
Total time spent discharging patient (in min): 35
-
Pending Results: No
Hospital Course
23-year-old female past medical history of anorexia, anxiety/depression/bipolar, asthma, hypermobility syndrome presented for evaluation of weight loss, unintentional nausea and vomiting after food intake, and anorexia. Gastroenterology and
psychiatry were consulted. Patient was treated for constipation. Psychiatry recommended decreasing her Lexapro and benzodiazepines prior to meals. Surgery was consulted and mentioned and mentioned that while patient's CT imaging scan was performed
showing no significant abnormality, the SMA angle was roughly 28 degrees (normal 40-65) and the SMA distance at 3.5 mm (normal 10 to 30 mm). Patient had an upper gastrointestinal series which demonstrated a fairly abrupt cut off at the third
portion of the duodenum with some upstream dilation concerning for SMA syndrome but surgery did note that on the radiographic series the proximal duodenum and stomach was not particularly dilated. Patient had an endoscopic guided nasojejunal tube
placement for her SMA syndrome. She was started on tube feeds. Psychiatry agreed with the patient's decision not to change Lexapro at this point but that Remeron might be considered if an alternative antidepressant was felt to be needed.
Discharge Plan
-
Patient Disposition: Home (Routine Discharge)
Discharge Diagnosis/Procedures: SMA syndrome/nutcracker syndrome with low oral intake and malnutrition status post NG jejunostomy
Presentation with persistent nausea and vomiting with food consumption leading to low oral intake.
Cachexia with BMI of 18.
Being treated for eating disorder with prior history of inpatient treatment and psychiatry follow-up.
PTSD
Asthma
Condition: Good
Diet: Regular and Tube feeding
Activity: As tolerated
Blood Work: Have your CBC, CMP, Magnesium and Phosphorus checked latest by December 27, 2023
Other Services: VN
Referrals:
Pat Duke MD [Active] - 02/03/24 9:00 am
Ruddy Hamlin MD [Active] - in three to four weeks
Rosa Mckenna BR[employer]IL[employer] WORKER [Family Provider] - in less than 1 week
Berta Villa MD [Active] - in three to four weeks
Prescriptions:
Continued
fexofenadine-pseudoephedrine [Lakisha-D 24 Hour] 1 EACH tablet extended release 24 hr
1 ea PO DAILY PRN (Reason: allergies )
lamotrigine [Lamictal] 200 mg Tablet
200 mg PO DAILY
ondansetron HCl 4 mg Tablet
4 mg PO Q6H PRN (Reason: nausea )
clonazepam [Klonopin] 1 mg Tablet
1 mg PO DAILY
Patient Comments:
12/16/2023: last filled 11/11/23, 90 tabs for 30 days from [facility]
clonazepam 1 mg tablet
1 mg PO BID PRN (Reason: anxiety)
Patient Comments:
12/16/2023: last filled 11/11/23, 90 tabs for 30 days from [facility]
escitalopram oxalate 20 mg tablet
20 mg PO DAILY
Patient Comments:
12/16/2023: taken w/ 10mg = 30mg
Discontinued
escitalopram oxalate [Lexapro] 10 mg Tablet
10 mg PO DAILY
Patient Comments:
12/16/2023: taken w/ 20mg = 30mg
Discharge Orders:
Discharge Patient (As Directed); Ordered 12/26/23
Ordered By: Rashad Brown
Discharge Date and Time
Discharge Date/Time: 12/26/23 10:44
Print Language: SWEDISH
[2023-12-26] MEDS: KLONOPIN 1 MG PO (09:35)
[2023-12-26] MEDS: LEXAPRO 20 MG PO (09:35)
[2023-12-26] MEDS: HEPARIN 5000 UNITS SC (09:35)
[2023-12-26] MEDS: LAMICTAL 200 MG PO (09:35)
[2023-12-26] MEDS: SENOKOT-S 1 TABLET PO (09:35)
[2023-12-26] MEDS: PEPCID 20 MG PO (09:35)
== END 2023-12-26 10:44 | disposition home or self-care (01) | DRG 393 ==
LOC: 2 SOUTH 08:40
PROVIDERS: Internal Medicine; Nurse Practitioner; Registered Nurse; Surgery; ADMITTING PHYSICIAN Hospitalist; ATTENDING PHYSICIAN Hospitalist; CONSULT PHYSICIAN Internal Medicine Gastroenterology; CONSULT PHYSICIAN Surgery; EMERGENCY PHYSICIAN Emergency Medicine; FAMILY PHYSICIAN Internal Medicine; OTHER PHYSICIAN Psychiatry & Neurology Psychiatry
PROC: 0DH68UZ Insertion of Feeding Device into Stomach, Via Natural or Artificial Opening Endoscopic (ICD-10-PCS; 2023-12-24)
DX: K55.1 Chronic vascular disorders of intestine (principal); E43 Unspecified severe protein-calorie malnutrition; Z68.1 Body mass index [BMI] 19.9 or less, adult; F50.9 Eating disorder, unspecified; F43.10 Post-traumatic stress disorder, unspecified; Z86.59 Personal history of other mental and behavioral disorders
CPT/HCPCS: 71045; 74174; 74246; 80048; 80053; 81003; 81015; 82533; 83735; 84100; 84134; 84443; 84703; 85025; 93005; 96360; 99285; Q9967

== ENCOUNTER 2024-03-15 06:43 | Day surgery (SDC) | payer OTHER, SELFPAY ==
[2024-03-15] VITALS (8 sets, daily range): BP systolic 105–120; BP diastolic 68–91; BMI 18.7
[2024-03-15] MEDS: NORMOSOL-R 1000 IV (08:23)
--- NOTE | 2024-03-15 09:01 | PTCARENOTE ---
Patient taken to the OR and case management to see patient post op due to suicide risk. Will monitor patient. Bond Clerk Donnell mcginnis.
--- NOTE | 2024-03-15 10:15 | W.IMMPOSTOP ---
Surgical Immed Post Op Note
-
Primary Surgeon: Ruddy Hamlin MD
Assisting Surgeon: None
Pre-op Diagnosis: Malnutrition, concern for SMA syndrome
Post-op Diagnosis: Same
Procedure Performed:
EGD and endoscopic nasogastric tube placement.
Anesthesia Type: MAC
Specimen / Cultures: None
Estimated Blood Loss: 1 cc
Complications: [None]
Operative Findings: We were able to successfully intubate the distal duodenum and successfully clipped the feeding tube to the mucosa on 2 separate occasions however each time the feeding tube would be pulled back into the stomach. At this point we
elected to abort the intended procedure and leave the feeding tube in stomach. A bridle was used around the nasal vomer bone to secure the tube.
POST OP PLAN:
Will discharge home today. Patient has tube feeds and pump set up already.
--- NOTE | 2024-03-15 11:47 | CM ---
CM consulted to meet with the pt re: depression.
CM met with the pt.
Pt is a 23 year old female, admitted for SDC, EGD and endoscopic nasogastric tube placement procedure performed today. Per surgeon, pt will be discharged home today and pt has tube feeds and pump set up already.
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 Pt reports she has supportive boyfriend and supportive parents, supportive older brother. Pt reports she has been
diagnosed with Depression at the age of 15, has been sober for 1 year. Pt reports she has a private outpatient psychiatrist and psychotherapist, on antidepressants. Behavioral modification techniques with active listening performed. Pt denied
being suicidal, admitted being depressed that mostly related to her current health condition, has outpatient psychiatrist and psychotherapist, has a great support system. Emotional support with reassurance offered and provided. Plan: resume
outpatient psychiatric and psychotherapy services.
Pt expressed her appreciation meeting with her, provided support and reassurances.
D/C plan: home with family/friends.
--- NOTE | 2024-03-22 16:36 | OR.RPT ---
Operative Report
Operative Report
Patient Name: Angelita Cates
: 2000
Date of Operation: 03/15/2024
Preoperative Diagnosis: Malnutrition, concern for SMA syndrome
Postoperative Diagnosis: Same
Procedure(s):
Endoscopic nasogastric tube placement
Surgeon(s):
Dr. Hamlin
Anesthesia: MAC
Estimated Blood Loss: 1 cc
Urine Output: None
Drains/Lines/Implants: 6 Welsh nasojejunal tube
Specimens: None
Indication
This is a 23-year-old female with a history of malnutrition, questionable SMA syndrome status post prior endoscopic nasal jejunal feeding tube placement
Operative Findings: We were able to successfully intubate the distal duodenum and successfully clipped the feeding tube to the mucosa on 2 separate occasions however each time the feeding tube would be pulled back into the stomach. At this point we
elected to abort the intended procedure and leave the feeding tube in stomach. A bridle was used around the nasal vomer bone to secure the tube.
Details of the operation:
After inducing general anesthesia and placement of a mouth guard, an upper endoscopy was performed using a pediatric colonoscope, and was unremarkable. We then inserted the nasojejunal feeding tube with a 2-0 silk loop at the tip of the feeding
tube and passed that through the right nare and out through the mouth this was then grasped with a endoscopic clip that had been passed through the working channel of the scope and this was carefully brought down the esophagus into the stomach and
into the duodenum. Intubating the second part of the duodenum was fairly challenging as the scope looped fairly significantly however with the help of fluoroscopy we were able to eventually advance into D3 and clip the feeding tube in place.
Unfortunately our first fire of the clip did not hold as we pulled the scope back so this was reattempted however once again the second clip came loose. At this point I elected to abort the intended procedure and simply place a nasogastric feeding
tube. Using a fresh 6 Welsh nasogastric tube we advanced it under fluoroscopic guidance into the stomach successfully. We then used magnetic bridling device to pass an umbilical tape around the vomer and secured tube in place. This was doubly
secured using a naso-gastric tube bandage. There was minimal blood loss. The patient returned to the recovery room in stable condition. Sponge and instrument counts were correct. No specimen sent to pathology from our portion of the procedure.
I was the attending physician and performed the procedure with no assistance. I was present for all portions of the case
Ruddy Hamlin MD
== END 2024-03-15 12:00 | disposition home or self-care (01) ==
LOC: SDS 06:43
PROVIDERS: ATTENDING PHYSICIAN Surgery
DX: E46 Unspecified protein-calorie malnutrition (principal); R11.2 Nausea with vomiting, unspecified; F43.10 Post-traumatic stress disorder, unspecified; F50.9 Eating disorder, unspecified; F12.11 Cannabis abuse, in remission; Z68.20 Body mass index [BMI] 20.0-20.9, adult
CPT/HCPCS: 43246; 74018; 76000